=== PATIENT | male | born 1965 | race African-American/Black ===

== ENCOUNTER 2017-09-19 17:17 | Emergency (ER) | payer BC ==
[2017-09-19] MEDS ORDERED: KETOROLAC 30 MG/ML INJ ONE (18:08)
[2017-09-19] MEDS ORDERED: HYDROCODONE/APAP 10/325 TAB ONE (18:53)
--- NOTE | 2017-09-19 19:21 | RAD REPORT ---
EXAM DESCRIPTION: RAD - Shoulder Left 2 View - 09/19/2017 7:12 pm CLINICAL HISTORY: Left shoulder pain FINDINGS: No acute fracture or dislocation is seen. Large amount a calcification is present superior to the humeral head probably indicating calcific ten dinitis. Mild osteoarthritis involves acromioclavicular joint
--- NOTE | 2017-09-19 19:28 | EDPHYS ---
Physician Documentation [facility] Name: Hans Thurston Jr Age: 52 yrs Sex: Male : 1965 Arrival Date: 09/19/2017 Time: 17:20 Bed 27 Private MD: ED Physician Kory Hoskins HPI: 09/19 19:22 This 52 yrs old Black Male presents to ER via Ambulatory with complaints of Arm Problem.gs 19:22 The complaints affect the anterior aspect of left shoulder. Onset: The symptoms/episode gs began/occurred gradually, today. Modifying factors: the symptoms are aggravated by movement. Associated signs and symptoms: Pertinent negatives: numbness, tingling. Severity of symptoms: At their worst the symptoms were severe, in the emergency department the symptoms are unchanged. The patient has not experienced similar symptoms in the past. Historical: - Allergies: 17:34 No Known Allergies; hj - Home Meds: 17:34 None [Active]; hj - PMHx: 17:34 None; hj - PSHx: 17:34 None; hj - Immunization history:: Adult Immunizations up to date. - Social history:: Smoking status: unknown. ROS: 19:22 All other systems are negative. gs Exam: 19:22 Head/Face: Normocephalic, atraumatic. Cardiovascular: Regular rate and rhythm with a gs normal S1 and S2. No gallops, murmurs, or rubs. Normal PMI, no JVD. No pulse deficits. Respiratory: Lungs have equal breath sounds bilaterally, clear to auscultation and percussion. No rales, rhonchi or wheezes noted. No increased work of breathing, no retractions or nasal flaring. Abdomen/GI: Soft, non-tender, with normal bowel sounds. No distension or tympany. No guarding or rebound. No evidence of tenderness throughout. Skin: Warm, dry with normal turgor. Normal color with no rashes, no lesions, and no evidence of cellulitis. Neuro: Awake and alert, GCS 15, oriented to person, place, time, and situation. Cranial nerves II-XII grossly intact. Motor strength 5/5 in all extremities. Sensory grossly intact. Cerebellar exam normal. Normal gait. 19:22 Constitutional: The patient appears alert, awake, uncomfortable. 19:22 Musculoskeletal/extremity: Pulses: are normal with no appreciated deficits, Sensation intact. Joints: the left shoulder displays limited range of motion, painful range of motion, tenderness. Vital Signs: 17:35 BP 121 / 82; Pulse 93; Resp 18; Temp 98.9(TE); Pulse Ox 98% on R/A; Weight 95.25 kg; hj Height 5 ft. 6 in. (167.64 cm); Pain 10/10; 18:55 BP 118 / 84; Pulse 113; Resp 18; Pulse Ox 98% on R/A; tl3 19:46 BP 138 / 90; Pulse 98; Resp 18; Pulse Ox 100% ; tl3 17:35 Body Mass Index 33.89 (95.25 kg, 167.64 cm) hj MDM: 18:01 Patient medically screened. 19:22 Differential diagnosis: dislocation, contusion, tendonitis. Data reviewed: vital signs, nurses notes. Response to treatment: the patient's symptoms have mildly improved after treatment, and as a result, I will discharge patient. 09/19 18:01 Order name: Shoulder Left (2 View) XRAY; Complete Time: 19:22 Administered Medications: 18:11 Drug: TORadol 30 mg Route: IM; Site: left gluteus; tl3 18:53 Follow up: Response: Pain is unchanged, physician notified tl3 18:53 Drug: Bethany 10 mg-325 mg 1 tabs Route: PO; tl3 19:48 Follow up: Response: Pain is decreased tl3 Disposition: 09/19/17 19:27 Discharged to Home. Impression: Calcific tendinitis of left shoulder. - Condition is Stable. - Discharge Instructions: Tendinitis. - Prescriptions for Prednisone 20 mg Oral Tablet - take 1 tablet by ORAL route once daily for 5 days; 5 tablet. Tylenol- Codeine #4 300-60 mg Oral Tablet - take 1 tablet by ORAL route every 6 hours As needed; 12 tablet. - Medication Reconciliation Form, Thank You Letter, Antibiotic Education, Prescription Opioid Use form. - Follow up: Jose Lazcano MD; When: 2 - 3 days; Reason: Re-evaluation by your physician. Signatures: Dispatcher [employer] EDSuraj Blanca RN RN Kory Hoskins MD MD Mellisa Cunningham RN RN tl3 Corrections: (The following items were deleted from the chart) 19:55 19:27 09/19/2017 19:27 Discharged to Home. Impression: Calcific tendinitis of left tl3 shoulder. Condition is Stable. Forms are Medication Reconciliation Form, Thank You Letter, Antibiotic Education, Prescription Opioid Use. Follow up: Jose Lazcano; When: 2 - 3 days; Reason: Re-evaluation by your physician. gs
--- NOTE | 2017-09-19 19:28 | ER ---
Nurse's Notes [facility] Name: Hans Thurston Jr Age: 52 yrs Sex: Male : 1965 Arrival Date: 09/19/2017 Time: 17:20 Bed 27 Private MD: Diagnosis: Calcific tendinitis of left shoulder Presentation: 09/19 17:33 Presenting complaint: Patient states: i cant raise my L arm for 3 days, i might have hj hurt it at some point and now its beginning to swell; tingling and numbness started today;. Transition of care: patient was not received from another setting of care. Onset of symptoms was September 19, 2017. Initial Sepsis Screen: Does the patient meet any 2 criteria? No. Patient's initial sepsis screen is negative. Does the patient have a suspected source of infection? No. Patient's initial sepsis screen is negative. Care prior to arrival: None. 17:33 Method Of Arrival: Ambulatory 17:33 Acuity: PAL 4 hj Triage Assessment: 17:35 General: Appears in no apparent distress. uncomfortable, Behavior is calm, cooperative, hj appropriate for age. Pain: Complains of pain in anterior aspect of left shoulder. Historical: - Allergies: 17:34 No Known Allergies; hj - Home Meds: 17:34 None [Active]; hj - PMHx: 17:34 None; hj - PSHx: 17:34 None; hj - Immunization history:: Adult Immunizations up to date. - Social history:: Smoking status: unknown. Screenin:55 Abuse screen: Denies threats or abuse. Nutritional screening: No deficits noted. tl3 Tuberculosis screening: No symptoms or risk factors identified. Fall Risk None identified. Assessment: 17:15 General: Appears distressed, uncomfortable, well groomed, well developed, well tl3 nourished, Behavior is calm, cooperative, appropriate for age, restless. Pain: Complains of pain in left arm and anterior aspect of left shoulder. Neuro: No deficits noted. Level of Consciousness is awake, alert, obeys commands, Oriented to person, place, time, situation, Appropriate for age. Cardiovascular: Heart tones S1 S2 present Capillary refill < 3 seconds in bilateral fingers Patient's skin is warm and dry. Respiratory: Airway is patent Trachea midline Respiratory effort is even, unlabored, Respiratory pattern is regular, symmetrical, Breath sounds are clear bilaterally. GI: No signs and/or symptoms were reported involving the gastrointestinal system. : No signs and/or symptoms were reported regarding the genitourinary system. EENT: No signs and/or symptoms were reported regarding the EENT system. Derm: No signs and/or symptoms reported regarding the dermatologic system. Musculoskeletal: Reports pain in left arm and anterior aspect of left shoulder Pain is 10 out of 10 on a pain scale. 18:55 Reassessment: No changes from previously documented assessment. Patient and/or family tl3 updated on plan of care and expected duration. Pain level reassessed. Patient is alert, oriented x 3, equal unlabored respirations, skin warm/dry/pink. pt states that no relief was obtained from pain med, Dr Hoskins notified. 19:46 Reassessment: No changes from previously documented assessment. Patient and/or family tl3 updated on plan of care and expected duration. Pain level reassessed. Patient is alert, oriented x 3, equal unlabored respirations, skin warm/dry/pink. pt states that pain is decreased, Dr Hoskins at bedside discussing POC. Vital Signs: 17:35 BP 121 / 82; Pulse 93; Resp 18; Temp 98.9(TE); Pulse Ox 98% on R/A; Weight 95.25 kg; hj Height 5 ft. 6 in. (167.64 cm); Pain 10/10; 18:55 BP 118 / 84; Pulse 113; Resp 18; Pulse Ox 98% on R/A; tl3 19:46 BP 138 / 90; Pulse 98; Resp 18; Pulse Ox 100% ; tl3 17:35 Body Mass Index 33.89 (95.25 kg, 167.64 cm) ED Course: 17:20 Patient arrived in ED. sb2 17:34 Triage completed. hj 17:35 Arm band placed on right wrist. 17:53 Kory Hoskins MD is Attending Physician. 18:05 Mellisa Cunningham, BRYCE is Primary Nurse. tl3 18:55 Pt. is pacing. Awaiting for x-ray. tl3 18:55 Patient has correct armband on for positive identification. Bed in low position. Call tl3 light in reach. Side rails up X 1. 18:55 No provider procedures requiring assistance completed. Patient did not have IV access tl3 during this emergency room visit. 19:07 Shoulder Left (2 View) XRAY In Process Unspecified. EDMS 19:08 X-ray completed. Portable x-ray completed in exam room. Patient tolerated procedure kc2 well. 19:26 Jose Lazcano MD is Referral Physician. Administered Medications: 18:11 Drug: TORadol 30 mg Route: IM; Site: left gluteus; tl3 18:53 Follow up: Response: Pain is unchanged, physician notified tl3 18:53 Drug: [place]ugh 10 mg-325 mg 1 tabs Route: PO; tl3 19:48 Follow up: Response: Pain is decreased tl3 Outcome: 19:27 Discharge ordered by . 19:55 Discharged to home ambulatory. tl3 19:55 Condition: good 19:55 Discharge instructions given to patient, Instructed on discharge instructions, follow up and referral plans. medication usage, Demonstrated understanding of instructions, follow-up care, medications, Prescriptions given X 1. 19:55 Patient left the ED. tl3 Signatures: Dispatcher [employer] EDMS Suraj Arce, BRYCE RN Gianna Fernandez kc2 Kory Hoskins MD MD Celeste Dailey sb2 Mellisa Cunningham RN RN tl3 Corrections: (The following items were deleted from the chart) 17:37 17:35 Pulse 93bpm; Resp 18bpm; Pulse Ox 98% RA; Temp 98.9F Temporal; 95.25 kg; Height 5 hj ft. 6 in.; BMI: 33.8; Pain 10/10; hj 17:38 17:35 Pulse 93bpm; Resp 18bpm; Pulse Ox 98% RA; Temp 98.9F Temporal; 95.25 kg; Height 5 hj ft. 6 in.; BMI: 33.8; Pain 10/10; hj
[2017-09-19 20:22] VITALS: TEMP 98.9
[2017-09-19 20:24] VITALS: BP 138/90; O2SAT 100
== END 2017-09-19 19:55 | disposition home or self-care (01) ==
LOC: ER 17:17
DX: M75.32 Calcific tendinitis of left shoulder (principal)
CPT/HCPCS: 96372; 99283

== ENCOUNTER 2017-12-13 06:38 | Emergency (ER) | payer BC ==
--- NOTE | 2017-12-13 07:57 | EDPHYS ---
Physician Documentation [facility] Name: Hans Thurston Jr Age: 52 yrs Sex: Male : 1965 Arrival Date: 12/13/2017 Time: 06:38 Bed 8 Private MD: ED Physician Wayne Larson HPI: 12/13 06:57 This 52 yrs old Black Male presents to ER via Ambulatory with complaints of Sore Throat.cp 06:57 The patient presents with sore throat. cp 06:57 Onset: The symptoms/episode began/occurred 2 day(s) ago. cp 06:57 Severity of symptoms: in the emergency department the symptoms are unchanged, despite home interventions. Associated signs and symptoms: Pertinent negatives cough, diarrhea, dysphagia, fever, flu-like symptoms, headache, vomiting. Historical: - Allergies: 06:48 No Known Allergies; tl2 - Home Meds: 06:48 None [Active]; tl2 - PMHx: 06:48 None; tl2 - PSHx: 06:48 None; tl2 - Immunization history:: Adult Immunizations up to date. - Social history:: Smoking status: Patient/guardian denies using tobacco. - Ebola Screening: : No symptoms or risks identified at this time. ROS: 07:00 Constitutional: Negative for body aches, chills, fever, poor PO intake. cp 07:00 Eyes: Negative for injury, pain, redness, and discharge. cp 07:00 ENT: Positive for sore throat, Negative for drainage from ear(s), ear pain, rhinorrhea, difficulty swallowing, difficulty handling secretions. 07:00 Cardiovascular: Negative for chest pain, palpitations. 07:00 Respiratory: Negative for cough, shortness of breath, wheezing. 07:00 Abdomen/GI: Negative for abdominal pain, nausea, vomiting, and diarrhea. 07:00 Skin: Negative for cellulitis, rash. 07:00 Neuro: Negative for headache. 07:00 All other systems are negative. Exam: 07:10 Constitutional: The patient appears in no acute distress, alert, awake, non-toxic, well cp developed, well nourished. 07:10 Head/Face: Normocephalic, atraumatic. cp 07:10 Eyes: Periorbital structures: appear normal, Pupils: equal, round, and reactive to light and accomodation, Extraocular movements: intact throughout, Conjunctiva: normal, no exudate, no injection, Sclera: no appreciated abnormality, Lids and lashes: appear normal, bilaterally. 07:10 ENT: External ear(s): are unremarkable, Ear canal(s): are normal, clear, TM's: bulging, is not appreciated, bilaterally, dullness, bilaterally, erythema, is not appreciated, bilaterally, Nose: is normal, Mouth: Lips: moist, Oral mucosa: moist, Posterior pharynx: Airway: no evidence of obstruction, patent, Tonsils: with erythema, no enlargement, no exudate, Uvula: midline, non-edematous, swelling, is not appreciated, erythema, that is mild, exudate, is not appreciated, Voice: is normal. 07:10 Neck: ROM/movement: is normal, is supple, without pain, no range of motions limitations, no meningismus, no nuchal rigidity, Lymph nodes: no appreciated lymphadenopathy. 07:10 Chest/axilla: Inspection: normal, Palpation: is normal, no crepitus, no tenderness. 07:10 Cardiovascular: Rate: normal, Rhythm: regular. 07:10 Respiratory: the patient does not display signs of respiratory distress, Respirations: normal, no use of accessory muscles, no retractions, no splinting, no tachypnea, labored breathing, is not present, Breath sounds: are clear throughout, no decreased breath sounds, no stridor, no wheezing. 07:10 Abdomen/GI: Exam negative for discomfort, distension, guarding, Inspection: abdomen appears normal. 07:10 Skin: cellulitis, is not appreciated, no rash present. Vital Signs: 06:48 BP 144 / 88; Pulse 72; Resp 18; Temp 98.4(O); Pulse Ox 96% on R/A; Weight 97.52 kg; tl2 Height 5 ft. 6 in. (167.64 cm); Pain 6/10; 07:49 BP 142 / 86; Pulse 70; Resp 16; Pulse Ox 100% on R/A; hb 06:48 Body Mass Index 34.70 (97.52 kg, 167.64 cm) tl2 MDM: 06:43 Patient medically screened. cp 07:00 Differential diagnosis: epiglottitis, gingivostomatitis, group A strep tonsillitis, cp barrington's angina, mononucleosis, pharyngitis, retropharyngeal abcess tonsillitis, uvulitis. 07:55 Data reviewed: vital signs, nurses notes, lab test result(s), and as a result, I will discharge patient. 07:55 Counseling: I had a detailed discussion with the patient and/or guardian regarding: the cp historical points, exam findings, and any diagnostic results supporting the discharge/admit diagnosis, lab results, to return to the emergency department if symptoms worsen or persist or if there are any questions or concerns that arise at home. 12/13 06:52 Order name: Strep; Complete Time: 07:56 12/13 07:56 Interpretation: Reviewed. 12/13 07:32 Order name: Throat Culture EDWI Administered Medications: No medications were administered Disposition: 12/14 06:44 Co-signature as Attending Physician, Wayne Larson MD I agree with the assessment and [facility] plan of care. Disposition: 12/13/17 07:56 Discharged to Home. Impression: Acute pharyngitis. - Condition is Stable. - Discharge Instructions: Pharyngitis. - Prescriptions for Ibuprofen 800 mg Oral Tablet - take 1 tablet by ORAL route every 8 hours As needed take with food; 30 tablet. Tessalon Perles 100 mg Oral Capsule - take 1 capsule by ORAL route every 8 hours As needed; 15 capsule. - Medication Reconciliation Form, Thank You Letter, Antibiotic Education, Prescription Opioid Use form. - Follow up: Private Physician; When: 2 - 3 days; Reason: Recheck today's complaints. - Problem is new. - Symptoms are unchanged. Signatures: Dispatcher MedBradford Regional Medical CenterMariluz Toro RN RN sv Anderson, Corey, MD MD cha Page, Corey, PA PA Kelli Javed RN RN tl2 Corrections: (The following items were deleted from the chart) 12/13 09:24 07:56 12/13/2017 07:56 Discharged to Home. Impression: Acute pharyngitis. Condition is sv Stable. Forms are Medication Reconciliation Form, Thank You Letter, Antibiotic Education, Prescription Opioid Use. Follow up: Private Physician; When: 2 - 3 days; Reason: Recheck today's complaints. Problem is new. Symptoms are unchanged. 12/14 08:20 07 07:00 Constitutional: Negative for body aches, chills, fever, poor PO intake, cp cp 12/14 08:20 07 07:00 Eyes: Negative for injury, pain, redness, and discharge, cp cp
--- NOTE | 2017-12-13 07:57 | ER ---
Nurse's Notes [facility] Name: Hans Thurston Jr Age: 52 yrs Sex: Male : 1965 Arrival Date: 12/13/2017 Time: 06:38 Bed 8 Private MD: Diagnosis: Acute pharyngitis Presentation: 12/13 06:47 Presenting complaint: Patient states: I've had a sore and scratchy throat for 2 days. tl2 Denies cough or congestion. Transition of care: patient was not received from another setting of care. Onset of symptoms was December 11, 2017. Risk Assessment: Do you want to hurt yourself or someone else? Patient reports no desire to harm self or others. Initial Sepsis Screen: Does the patient meet any 2 criteria? No. Patient's initial sepsis screen is negative. Does the patient have a suspected source of infection? No. Patient's initial sepsis screen is negative. Care prior to arrival: None. 06:47 Method Of Arrival: Ambulatory tl2 06:47 Acuity: PAL 4 tl2 Triage Assessment: 06:48 General: Appears in no apparent distress. uncomfortable, Behavior is calm, cooperative, tl2 appropriate for age. Pain: Complains of pain in throat Pain currently is 6 out of 10 on a pain scale. EENT: Reports difficulty swallowing Denies nasal congestion, nasal discharge. Historical: - Allergies: 06:48 No Known Allergies; tl2 - Home Meds: 06:48 None [Active]; tl2 - PMHx: 06:48 None; tl2 - PSHx: 06:48 None; tl2 - Immunization history:: Adult Immunizations up to date. - Social history:: Smoking status: Patient/guardian denies using tobacco. - Ebola Screening: : No symptoms or risks identified at this time. Screenin:49 Abuse screen: Denies threats or abuse. Nutritional screening: No deficits noted. tl2 Tuberculosis screening: No symptoms or risk factors identified. Fall Risk None identified. Assessment: 07:10 General: Appears in no apparent distress. comfortable, well groomed, well developed, sg well nourished, Behavior is calm, cooperative, appropriate for age. Pain: Denies pain. Neuro: Level of Consciousness is awake, alert, obeys commands, Oriented to person, place, time, [employer] are equal bilaterally Moves all extremities. Full function Gait is steady, Speech is normal, Facial symmetry appears normal, Pupils are PERRLA. Cardiovascular: Heart tones S1 S2 present. Respiratory: Airway is patent Respiratory effort is even, unlabored, Breath sounds are clear. GI: No signs and/or symptoms were reported involving the gastrointestinal system. : No signs and/or symptoms were reported regarding the genitourinary system. EENT: Throat is reddened has enlarged tonsils on left Reports pain when swallowing. Derm: Skin is intact, is healthy with good turgor, Skin is dry, Skin is normal, Skin temperature is warm. Musculoskeletal: No signs and/or symptoms reported regarding the musculoskeletal system. 07:49 Reassessment: Patient appears in no apparent distress at this time. No changes from hb previously documented assessment. Patient and/or family updated on plan of care and expected duration. Pain level reassessed. Patient is alert, oriented x 3, equal unlabored respirations, skin warm/dry/pink. Vital Signs: 06:48 BP 144 / 88; Pulse 72; Resp 18; Temp 98.4(O); Pulse Ox 96% on R/A; Weight 97.52 kg; tl2 Height 5 ft. 6 in. (167.64 cm); Pain 6/10; 07:49 BP 142 / 86; Pulse 70; Resp 16; Pulse Ox 100% on R/A; hb 06:48 Body Mass Index 34.70 (97.52 kg, 167.64 cm) tl2 ED Course: 06:38 Patient arrived in ED. ds1 06:43 José Garcia, BRYCE is Primary Nurse. bp 06:43 Wayne Hendricks PA is PHCP. cp 06:43 Wayne Larson MD is Attending Physician. cp 06:48 Triage completed. tl2 06:48 Arm band placed on right wrist. tl2 07:09 Primary Nurse role handed off by José Garcia, BRYCE sg 07:09 Alex Arevalo, BRYCE is Primary Nurse. sg 07:10 No provider procedures requiring assistance completed. Strep swab sent to lab. sg 09:24 Patient has correct armband on for positive identification. sv 09:24 Patient did not have IV access during this emergency room visit. sv Administered Medications: No medications were administered Outcome: 07:56 Discharge ordered by . cp 09:24 Discharged to home ambulatory. sv 09:24 Condition: stable 09:24 Discharge instructions given to patient, Instructed on discharge instructions, follow up and referral plans. medication usage, Demonstrated understanding of instructions, follow-up care, medications, Prescriptions given X 2. 09:24 Patient left the ED. sv Signatures: Mariluz Gonzales, RN RN Alex Gamboa RN RN Beatriz Grajeda ds1 Wayne Hendricks PA PA cp Baxter, Heather, RN RN Kelli Rey RN RN tl2 José Garcia RN RN bp
[2017-12-13 09:32] VITALS: TEMP 98.4
[2017-12-13 09:33] VITALS: BP 142/86; O2SAT 100
== END 2017-12-13 09:24 | disposition home or self-care (01) ==
LOC: ER 06:38
DX: J02.9 Acute pharyngitis, unspecified (principal)
CPT/HCPCS: 87070; 87081; 99283

== ENCOUNTER 2020-12-14 03:22 | Emergency (ER) | payer BC, OTHER ==
--- OUTSIDE RECORDS SUMMARY | 2020-12-14 03:25 | XMS REPORT | Continuity of Care Document ---
:1965 Author Organization [facility] t Address [facility] [place] [address] Care Team Providers Name Role Phone Irene Bain Attending Clinician [phone] MD [place] BAIN Attending Clinician Unavailable ODELL Admitting Clinician Unavailable MD [place] BAIN Admitting Clinician Unavailable Problems Condition Condition Condition Status Onset Resolution Last Treating Co mments Source Name Details Category Date Date Treatment Clinician Date History History Problem Active [place] and 09-04 da physical Physical 00:00: Medica l examinatio Examinatio 00 Gr oup n, n, pre-employ Pre-employ ment ment Allergies, Adverse Reactions, Alerts This patient has no known allergies or adverse reactions. Social History Smoking Status Start Date Stop Date Source Never Smoker [facility] Medications This patient has no known medications. Vital Signs Vital Name Observation Time Observation Value Comments Source BP Diastolic 2018-09-04 00:00:00 86 mm[Hg] [facility] Height 2018-09-04 00:00:00 66 [in_i] [facility] BMI (Body Mass 2018-09-04 00:00:00 35.6 kg/m2 [facility] BP Systolic 2018-09-04 00:00:00 136 mm[Hg] [facility] Body Weight 2018-09-04 00:00:00 3528 [oz_av] [facility] Procedures This patient has no known procedures. Encounters Start End Encounter Admission Attending Care Care Encounter Source Date/Time Date/Time Type Type Clinicians Facility Department ID 2020-11-13 2020-11-13 Outpatient Odell Uyen [facility] [id number] 00:00:00 00:00:00 Fani Bonilla [id number] 2020-09-25 2020-09-26 Outpatient ODELL, [facility] [id number] [place] 00:00:00 00:00:00 FANI [address] 2020-09-25 2020-09-25 Outpatient Odell, [facility] [id number] 00:00:00 00:00:00 Fani Bonilla [id number] 2020-09-21 2020-09-21 Outpatient ODELL, [facility] [id number] [place] 00:00:00 00:00:00 FANI [address] 2020-09-21 2020-09-21 Outpatient ODELL, [facility] [id number] [place] 00:00:00 00:00:00 FANI [address] 2020-09-07 2020-09-07 Outpatient ODELL, [facility] [id number] [place] 00:00:00 00:00:00 FANI [address] 2020-08-31 2020-08-31 Outpatient Odell, [facility] [id number] 00:00:00 00:00:00 Fani Bonilla [id number] 2020-08-12 2020-08-12 Outpatient Odell, [facility] [id number] 00:00:00 00:00:00 Fani Irene [id number] 2018-09-04 2018-09-04 Narayan Live [facility] [place] - [id number] Coral starkey 00:00:00 00:00:00 MD Noel: [facility] [address] [facility] [address], [facility] [place] [address] , Ph. Results Test Description Test Time Test Comments Results Result Comments Source SARS-CoV-2 (COVID-19) RNA [Presence] in Respiratory sp ecimen by 2020-09-21 18:18:42 CHERYL with probe detection Test Item Value Reference Range Interpretation Comme nts SARS-CoV-2 (COVID-19) RNA [Presence] in Respiratory Not detected No t-Detected specimen by CHERYL with probe detection (test code = 80254-9) Whether patient is employed in a healthcare setting (test code = 76459-9) Whether the patient has symptoms related to condition of interest (test code = 52325-3) Patient was hospitalized because of this condition (test code = 36952-2) Whether the patient was admitted to intensive care unit (ICU) for condition of interest (test code = 11500-8) Whether patient resides in a congregate care setting (test code = 59972-4)
--- NOTE | 2020-12-14 07:01 | ER ---
Nurse's Notes [facility] Name: Hans Thurston Jr Age: 55 yrs Sex: Male : 1965 Arrival Date: 12/14/2020 Time: 03:26 Bed DIS4 Private MD: Diagnosis: Acute tonsillitis Presentation: 12/14 03:48 Chief complaint: Patient states: he has had a sore throat since Monday no fever the bb pain is getting worse. Coronavirus screen: At this time, the client does not indicate any symptoms associated with coronavirus-19. Ebola Screen: No symptoms or risks identified at this time. Initial Sepsis Screen: Does the patient meet any 2 criteria? No. Patient's initial sepsis screen is negative. Does the patient have a suspected source of infection? No. Patient's initial sepsis screen is negative. Risk Assessment: Do you want to hurt yourself or someone else? Patient reports no desire to harm self or others. Onset of symptoms was December 11, 2020. 03:48 Method Of Arrival: Ambulatory bb 03:48 Acuity: PAL 5 bb Triage Assessment: 03:49 General: Appears in no apparent distress. Behavior is calm, cooperative. Pain: bb Complains of pain in throat Pain currently is 9 out of 10 on a pain scale. EENT: Reports difficulty swallowing. Neuro: Level of Consciousness is awake, alert, obeys commands, Oriented to person, place, time, situation. Cardiovascular: Capillary refill < 3 seconds Patient's skin is warm and dry. Respiratory: Respiratory effort is even, unlabored, Respiratory pattern is regular. GI: No signs and/or symptoms were reported involving the gastrointestinal system. Derm: Skin is dry, Skin is normal, Skin temperature is warm. Musculoskeletal: Circulation, motion, and sensation intact. Historical: - Allergies: 03:49 No Known Allergies; bb - Home Meds: 03:49 None [Active]; bb - PMHx: 03:49 Prostate Cancer; bb - PSHx: 03:49 prostate removal; bb - Immunization history:: Adult Immunizations up to date, Client reports receiving the 1st dose of the Covid vaccine. - Social history:: Smoking status: Patient denies any tobacco usage or history of. Screenin:45 Abuse screen: Denies threats or abuse. Nutritional screening: No deficits noted. bb Tuberculosis screening: No symptoms or risk factors identified. Fall Risk None identified. Assessment: 04:45 Reassessment: No changes from previously documented assessment. Patient is alert, bb oriented x 3, equal unlabored respirations, skin warm/dry/pink. see triage assessment. 07:01 Reassessment: RECD REPORT FROM KEL WU. 55YO BM P/W SORE THROAT. IV ABX PENDING. bp Vital Signs: 03:48 BP 134 / 84; Pulse 85; Resp 16 S; Temp 99.7(O); Pulse Ox 97% on R/A; Weight 99.79 kg bb (R); Height 5 ft. 6 in. (167.64 cm) (R); Pain 9/10; 03:48 Body Mass Index 35.51 (99.79 kg, 167.64 cm) bb ED Course: 03:26 Patient arrived in ED. 03:49 Triage completed. bb 03:49 Arm band placed on Patient placed in waiting room, Patient notified of wait time. Labs bb ordered per protocol. 03:54 Strep swab sent to lab. bb 04:35 Johana Conner, RN is Primary Nurse. bb 04:45 Patient has correct armband on for positive identification. bb 05:40 Jadon Guillen MD is Attending Physician. pkl 06:16 CT Soft Tissue Neck W/contr In Process Unspecified. EDMS 07:00 Primary Nurse role handed off by Johana Conner RN bp 07:00 José Garcia, RN is Primary Nurse. bp Administered Medications: 07:00 Drug: Clindamycin 900 mg Route: IVPB; Infused Over: 30 mins; Site: right antecubital; bp Outcome: 07:01 Discharge ordered by . pkl 07:46 Patient left the ED. iw Signatures: Dispatcher [employer] EDMS Jadon Guillen MD MD pkJohana Christensen RN RN Munira Chamorro RN RN José Garcia RN RN bp Marsh, Wendy wm Corrections: (The following items were deleted from the chart) 03:50 03:49 PMHx: None; bb harsh
--- NOTE | 2020-12-14 07:02 | EDPHYS ---
Physician Documentation [facility] Name: Hans Thurston Jr Age: 55 yrs Sex: Male : 1965 Arrival Date: 12/14/2020 Time: 03:26 Bed DIS4 Private MD: ED Physician Jadon Guillen HPI: 12/14 05:52 This 55 yrs old Black Male presents to ER via Ambulatory with complaints of Sore Throat.pkl 05:52 The patient presents with sore throat. The patient describes throat pain as constant. pkl Onset: The symptoms/episode began/occurred 3 day(s) ago. Associated signs and symptoms: Pertinent positives: difficulty swallowing. Historical: - Allergies: 03:49 No Known Allergies; bb - Home Meds: 03:49 None [Active]; bb - PMHx: 03:49 Prostate Cancer; bb - PSHx: 03:49 prostate removal; bb - Immunization history:: Adult Immunizations up to date, Client reports receiving the 1st dose of the Covid vaccine. - Social history:: Smoking status: Patient denies any tobacco usage or history of. ROS: 06:30 Eyes: Negative for injury, pain, redness, and discharge. pkl 06:30 ENT: Positive for sore throat, difficulty swallowing. 06:30 Neck: Negative for stiffness. 06:30 Cardiovascular: Negative for chest pain, palpitations. 06:30 Respiratory: Negative for cough, shortness of breath. 06:30 Abdomen/GI: Negative for abdominal pain, nausea, vomiting, and diarrhea. 06:30 Back: Negative for acute changes. 06:30 : Negative for urinary symptoms. 06:30 MS/extremity: Negative for acute changes. 06:30 Skin: Negative for rash. 06:30 Neuro: Negative for altered mental status, loss of consciousness. Exam: 06:30 Head/Face: Normocephalic, atraumatic. Eyes: Pupils equal round and reactive to light, pkl extra-ocular motions intact. Lids and lashes normal. Conjunctiva and sclera are non-icteric and not injected. Cornea within normal limits. Periorbital areas with no swelling, redness, or edema. 06:30 ENT: Posterior pharynx: Uvula: edematous, erythema. 06:30 Neck: Exam negative for nuchal rigidity. 06:30 Chest/axilla: Exam negative for acute changes. 06:30 Cardiovascular: Rate: normal, Rhythm: regular. 06:30 Respiratory: the patient does not display signs of respiratory distress, Respirations: normal, Breath sounds: are clear throughout. 06:30 Abdomen/GI: Bowel sounds: normal, Palpation: abdomen is soft and non-tender, in all quadrants. 06:30 Back: Exam negative for acute changes. 06:30 : Exam negative for acute changes. 06:30 Musculoskeletal/extremity: Exam is negative for acute changes. 06:30 Skin: Exam negative for rash. 06:30 Neuro: Orientation: is normal, Mentation: is normal, Cranial nerves: grossly normal, Motor: is normal. Vital Signs: 03:48 BP 134 / 84; Pulse 85; Resp 16 S; Temp 99.7(O); Pulse Ox 97% on R/A; Weight 99.79 kg bb (R); Height 5 ft. 6 in. (167.64 cm) (R); Pain 9/10; 03:48 Body Mass Index 35.51 (99.79 kg, 167.64 cm) bb MDM: 05:40 Patient medically screened. pkl 06:57 Data reviewed: vital signs, nurses notes, lab test result(s), radiologic studies, CT pkl scan. ED course: Discussed lab and CT Scan result with patient Advised follow up with PCP in 2 to 3 days. patient understood instructions. 12/14 03:51 Order name: Strep; Complete Time: 05:42 bb 12/14 05:41 Order name: Throat Culture EDMS 12/14 05:50 Order name: CT Soft Tissue Neck W/contr pkl 12/14 06:51 Order name: CREATININE WHOLE BLOOD; Complete Time: 06:56 EDIL 12/14 05:50 Order name: Saline Lock; Complete Time: 05:58 pkl Administered Medications: 07:00 Drug: Clindamycin 900 mg Route: IVPB; Infused Over: 30 mins; Site: right antecubital; bp Disposition Summary: 12/14/20 07:01 Discharge Ordered Location: Home pkl Problem: new pkl Symptoms: have improved pkl Condition: Stable pkl Diagnosis - Acute tonsillitis pkl Followup: pkl - With: Private Physician - When: 2 - 3 days - Reason: Re-evaluation by your physician Discharge Instructions: - Discharge Summary Sheet pkl Forms: - Medication Reconciliation Form pkl - Thank You Letter pkl - Antibiotic Education pkl - Prescription Opioid Use pkl Prescriptions: - Clindamycin HCl 300 mg Oral Capsule - take 1 capsule by ORAL route every 6 hours for 7 days; 28 capsule; Refills: 0, pkl Product Selection Permitted Signatures: Dispatcher [employer] EDIL Jadon Guillen MD MD pkl Johana Conner RN RN José Thorne RN RN bp Corrections: (The following items were deleted from the chart) 03:50 03:49 PMHx: None; harsh house 05:51 05:51 CREATININE, SERUM+C.LAB.BRZ ordered. [facility] EDIL 06:32 05:52 Eyes: Negative for injury, pain, redness, and discharge, pkl pkl
[2020-12-14] MEDS ORDERED: CLINDAMYCIN 900MG/D5W 900 MG/50 ML IVPB IV ONE (07:25)
[2020-12-14 07:51] VITALS: BP 134/84; TEMP 99.7; O2SAT 97
--- NOTE | 2020-12-14 10:43 | RAD REPORT ---
EXAM DESCRIPTION: CT - Soft Tissue Neck W/Contr - 12/14/2020 9:18 am CLINICAL HISTORY: The patient is 55 years old and is Male; sore throat, difficulty swallowing TECHNIQUE: Axial computed tomography images of the neck with intravenous contrast. Sagittal and co mary jane reformatted images were created and reviewed. This CT exam was performed using one or more of the following dose reduction techniques: automated exposure control, adjustment of the mA and/or k V according to patient size, and/or use of iterative reconstruction technique. COMPARISON: No relevant prior studies available. FINDINGS: OROPHARYNX: Mild prominence of the palatine tonsils is noted. No peritonsillar abscess . HYPOPHARYNX: Unremarkable. LARYNX: Unremarkable. Normal epiglottis. TRACHEA: Unremarkable. RETROPHARYNGEAL SPACE: Unremarkable. SUBMANDIBULAR/PAROTID GLANDS: Unremarkable. Glands are normal in size. THYROID: Unremarkable. No enlarged or calcified nodules. BONES/JOINTS: There is multi-level intervertebral disc height loss. There are disc-osteophyte com plexes at several levels, with associated mild spinal canal narrowing. There is also facet hypertroph y and uncovertebral joint osteophytosis, with associated multilevel neural foraminal narrowing. SOFT TISSUES: The soft tissues are normal. VASCULATURE: Unremarkable. Normal in course and caliber. LYMPH NODES: Unremarkable. No enlarged lymph nodes. LUNG APICES: The lung apices are clear. IMPRESSION: Findings suggestive of mild bilateral tonsillitis. No evidence of peritonsillar abscess. Electronically signed by: Denae Gastelum MD 12/14/2020 6:34 AM CDT Due to temporary technical issues with the PACS/Fluency reporting system, reports are being signed by the in house radiologists without review as a courtesy to insure prompt reporting. The interpreting radiologist is fully responsible for the content of the report.
== END 2020-12-14 07:46 | disposition home or self-care (01) ==
LOC: ER 03:22
DX: J03.90 Acute tonsillitis, unspecified (principal)
CPT/HCPCS: 87070; 82565; 87081; 70491; Q9967

== ENCOUNTER 2021-05-23 16:13 | Emergency (ER) | payer OTHER ==
--- OUTSIDE RECORDS SUMMARY | 2021-05-23 16:16 | XMS REPORT | Continuity of Care Document ---
:1965 Author Organization [facility] t Address [address] [place] [address] Care Team Providers Name Role Phone Leny Attending Clinician Unavailable Irene Bain Attending Clinician [phone] MD [place] BAIN Attending Clinician Unavailable Kiko Attending Clinician Unavailable Leny Admitting Clinician Unavailable ODELL Admitting Clinician Unavailable MD [place] BAIN Admitting Clinician Unavailable Kiko Admitting Clinician Unavailable Payers Payer Name Policy Type Policy Number Effective Date Expiration Date [facility] [id number] 2018 00:00:00 SAMIRA BRIDGE \T\ [id number] Problems Condition Condition Condition Status Onset Resolution [...] Start Date Stop Date Source Never Smoker [facility] Medications This patient has no known medications. Vital Signs Vital Name Observation Time Observation Value Comments Source BP Diastolic 2018-09-04 00:00:00 86 mm[Hg] [facility] Height 2018-09-04 00:00:00 66 [in_i] [facility] BMI (Body Mass 2018-09-04 00:00:00 35.6 kg/m2 [facility] BP Systolic 2018-09-04 00:00:00 136 mm[Hg] [facility] Body Weight 2018-09-04 00:00:00 3528 [oz_av] [facility] Procedures This patient has no known procedures. Encounters Start End Encounter Admission Attending Care Care Encounter Source Date/Time Date/Time Type Type Clinicians Facility Department ID 2021-05-20 2021-05-20 Outpatient Goldfarb_D [facility] [id number] [place] 10:58:00 10:58:00 [facility] 2021-05-20 2021-05-20 Outpatient Odell, [facility] HMU [id number] 00:00:00 00:00:00 Fani Lightf [id number] 2021-02-16 Outpatient Goldfarb_D HMU [facility]U [id number] [place] 11:31:00 11:31:00 [id number] [facility] 2021-02-16 2021-02-16 Outpatient Odell, [facility] HMU [id number] 00:00:00 00:00:00 Fani Irene [id number] 2020-11-13 2020-11-13 Outpatient Goldfarb_D [facility]U [id number] [place] 12:45:00 12:45:00 [id number] [facility] 2020-11-13 2020-11-13 Outpatient Odell, [facility]U [id number] 00:00:00 00:00:00 Fani Lightf [id number] 2020-11-10 2020-11-10 Outpatient Goldfarb_D HM[facility]U [id number] [place] 11:45:00 11:45:00 [id number] [facility] 2020-10-02 2020-10-02 Outpatient Goldfarb_D HMU [facility]U [id number] [place] 09:07:00 09:07:00 [id number] [facility] 2020-09-30 2020-09-30 Outpatient Goldfarb_D [facility]U [id number] [place] 04:48:00 04:48:00 [id number] [facility] 2020-09-28 2020-09-28 Outpatient Goldfarb_D [facility]U [facility]U [id number] [place] 06:53:00 06:53:00 [id number] [facility] 2020-09-25 2020-09-26 Outpatient ODELL, [facility] [id number] [place] 00:00:00 00:00:00 FANI [address] [facility] 2020-09-25 2020-09-25 Outpatient Odell, [facility] HMU [id number] 00:00:00 00:00:00 Fani Bonilla [id number] 2020-09-21 2020-09-21 Outpatient Goldfarb_D [facility] [id number] [place] 11:20:00 11:20:00 [id number] [facility] 2020-09-21 2020-09-21 Outpatient ODELL, [facility] [id number] [place] 00:00:00 00:00:00 FANI [address] 2020-09-21 2020-09-21 Outpatient ODELL, [facility] [id number] [place] 00:00:00 00:00:00 FANI [address] [facility] 2020-09-07 2020-09-07 Outpatient ODELL, [facility] [id number] [place] 00:00:00 00:00:00 FANI [address] 2020-08-31 2020-08-31 Outpatient Goldfarb_D [facility] [id number] [place] 06:25:00 06:25:00 [id number] [facility] 2020-08-31 2020-08-31 Outpatient Odell, [facility] HMU [id number] 00:00:00 00:00:00 Fani Bonilla [id number] 2020-08-26 2020-08-26 Outpatient Goldfarb_D [facility] [id number] [place] 02:29:00 02:29:00 [id number] [facility] 2020-08-12 2020-08-12 Outpatient Goldfarb_D [facility]U [id number] [place] 03:22:00 03:22:00 [id number] [facility] 2020-08-12 2020-08-12 Outpatient Odell, [facility] [id number] 00:00:00 00:00:00 Fani Bonilla [id number] 2020-08-07 2020-08-07 Outpatient Goldfarb_D U [facility] [id number] [place] 03:56:00 03:56:00 [id number] [facility] 2020-04-01 2020-04-01 Outpatient [facility] [id number] [place] 02:48:00 02:48:00 [id number] 2018-09-04 2018-09-04 Narayan Live [facility] [place] - [id number] [place] 00:00:00 00:00:00 MD Noel: [address] [facility] [place] - [address], [place] [address] , Ph. Results Test Description Test Time Test Comments Results Result Comments Source SARS-CoV-2 (COVID-19) RNA [Presence] in Respiratory sp ecimen by 2020-09-21 18:18:42 CHERYL with probe detection Test Item Value Reference Range Interpretation Comme nts SARS-CoV-2 (COVID-19) RNA [Presence] in Respiratory Not detected No t-Detected specimen by CHERYL with probe detection (test code = 53210-4) Whether patient is employed in a healthcare setting (test code = 65790-2) Whether the patient has symptoms related to condition of interest (test code = 15398-8) Patient was hospitalized because of this condition (test code = 82883-9) Whether the patient was admitted to intensive care unit (ICU) for condition of interest (test code = 69148-1) Whether patient resides in a congregate care setting (test code = 33621-7)
--- NOTE | 2021-05-23 18:04 | RAD REPORT ---
EXAM DESCRIPTION: RAD - Shoulder Right 2 View - 05/23/2021 5:53 pm CLINICAL HISTORY: Right shoulder pain FINDINGS: No fracture or dislocation is seen. Moderate osteoarthritis AC joint mainly consisting of osteophytes. Right humeral head is high riding which may indicate a chronic rotator cuff tear
--- NOTE | 2021-05-23 18:17 | ER ---
Nurse's Notes [facility] Name: Hans Thurston Jr Age: 56 yrs Sex: Male : 1965 Arrival Date: 05/23/2021 Time: 16:14 Bed 12 Private MD: Diagnosis: Pain in right shoulder Presentation: 05/23 16:51 Chief complaint: Patient states: Right shoulder pain that started after laying on the ww couch. He states he is unable to move his shoulder that started on Monday. Denies any recent injury or trauma. Coronavirus screen: Vaccine status: Patient reports receiving the 2nd dose of the covid vaccine. Client denies travel out of the [place] in the last 14 days. Ebola Screen: Patient negative for fever greater than or equal to 101.5 degrees Fahrenheit, and additional compatible Ebola Virus Disease symptoms Patient denies exposure to infectious person. Initial Sepsis Screen: Does the patient meet any 2 criteria? No. Patient's initial sepsis screen is negative. Does the patient have a suspected source of infection? No. Patient's initial sepsis screen is negative. Risk Assessment: Do you want to hurt yourself or someone else? Patient reports no desire to harm self or others. Onset of symptoms is unknown. 16:51 Method Of Arrival: Ambulatory ww 16:51 Acuity: PAL 4 ww Triage Assessment: 16:52 General: Appears in no apparent distress. Behavior is calm, cooperative, appropriate ww for age. Pain: Complains of pain in anterior aspect of right shoulder and right axilla. EENT: No deficits noted. No signs and/or symptoms were reported regarding the EENT system. Neuro: No deficits noted. Level of Consciousness is awake, alert, obeys commands, Oriented to person, place, time, situation. Cardiovascular: No deficits noted. Denies chest pain, shortness of breath. Respiratory: No deficits noted. Airway is patent Respiratory effort is even, unlabored, Respiratory pattern is regular, symmetrical. GI: No deficits noted. No signs and/or symptoms were reported involving the gastrointestinal system. : No deficits noted. No signs and/or symptoms were reported regarding the genitourinary system. Derm: No deficits noted. No signs and/or symptoms reported regarding the dermatologic system. Musculoskeletal: Reports pain in anterior aspect of right shoulder, right axilla and right bicep. Historical: - Allergies: 16:52 No Known Allergies; ww - Home Meds: 16:52 None [Active]; ww - PMHx: 16:52 Prostate Cancer; ww - PSHx: 16:52 prostate removal; right knee menicus; ww - Immunization history:: Client reports receiving the 2nd dose of the Covid vaccine, Flu vaccine is not up to date. - Social history:: Smoking status: Patient denies any tobacco usage or history of. Patient/guardian denies using alcohol, street drugs, The patient lives with family. - Family history:: not pertinent. Screenin:55 Abuse screen: Denies threats or abuse. Denies injuries from another. Nutritional ww screening: No deficits noted. Tuberculosis screening: No symptoms or risk factors identified. Fall Risk None identified. Assessment: 18:38 Reassessment: Patient appears in no apparent distress at this time. General: Appears in ss no apparent distress. comfortable, Behavior is calm, cooperative. Neuro: Level of Consciousness is awake, alert, obeys commands. Cardiovascular: Capillary refill < 3 seconds is brisk in bilateral fingers. Respiratory: Airway is patent Respiratory effort is even, unlabored, Respiratory pattern is regular, symmetrical. EENT: Oral mucosa is moist. Derm: Skin is pink, warm \T\ dry. Musculoskeletal: Circulation, motion, and sensation intact. Range of motion: intact in all extremities, Swelling absent. Vital Signs: 16:51 BP 131 / 81; Pulse 81; Resp 18; Temp 98.3; Pulse Ox 98% on R/A; Weight 99.79 kg; Height ww 5 ft. 6 in. (167.64 cm); Pain 5/10; 16:51 Body Mass Index 35.51 (99.79 kg, 167.64 cm) ww ED Course: 16:14 Patient arrived in ED. am2 16:52 Triage completed. ww 16:52 Arm band placed on left wrist. ww 17:52 Damaris Grijalva MD is Attending Physician. ma2 17:53 Shoulder Right (2 View) XRAY In Process Unspecified. EDMS 18:38 Patient has correct armband on for positive identification. Bed in low position. Call ss light in reach. 18:38 No provider procedures requiring assistance completed. Patient did not have IV access ss during this emergency room visit. Administered Medications: No medications were administered Outcome: 18:17 Discharge ordered by . jarod 18:38 Discharged to home ambulatory. 18:38 Condition: good 18:38 Discharge instructions given to patient, Instructed on discharge instructions, follow up and referral plans. medication usage, Demonstrated understanding of instructions, follow-up care, Prescriptions given X 3. 18:42 Patient left the ED. Signatures: Dispatcher [employer] EDMS Tiffany Garcia RN RN Alissa Morris Mohammad, MD MD ma2 Wood, Whitney RN RN
--- NOTE | 2021-05-23 18:17 | EDPHYS ---
Physician Documentation [facility] Name: Hans Thurston Jr Age: 56 yrs Sex: Male : 1965 Arrival Date: 05/23/2021 Time: 16:14 Bed 12 Private MD: ED Physician Damaris Grijalva HPI: 05/23 18:15 This 56 yrs old Black Male presents to ER via Ambulatory with complaints of Shoulder ma2 Injury - right. 18:15 The patient or guardian complains of decreased range of motion. Onset: The ma2 symptoms/episode began/occurred gradually, 3 day(s) ago. Associated signs and symptoms: Pertinent negatives: diaphoresis, dyspnea. Severity of symptoms: At their worst the symptoms were mild, in the emergency department the symptoms are unchanged. The patient has not experienced similar symptoms in the past. Has history of right rotator cuff injury in the past, was working hard yesterday, at work, and started to have right shoulder pain to the anterior part, it is worse when he abduct the shoulder, or rotated.. Historical: - Allergies: 16:52 No Known Allergies; ww - Home Meds: 16:52 None [Active]; ww - PMHx: 16:52 Prostate Cancer; ww - PSHx: 16:52 prostate removal; right knee menicus; ww - Immunization history:: Client reports receiving the 2nd dose of the Covid vaccine, Flu vaccine is not up to date. - Social history:: Smoking status: Patient denies any tobacco usage or history of. Patient/guardian denies using alcohol, street drugs, The patient lives with family. - Family history:: not pertinent. ROS: 18:15 Constitutional: Negative for fever, chills, and weight loss. ma2 18:15 All other systems are negative. Exam: 18:15 Constitutional: This is a well developed, well nourished patient who is awake, alert, ma2 and in no acute distress. Head/Face: Normocephalic, atraumatic. Eyes: Pupils equal round and reactive to light, extra-ocular motions intact. Lids and lashes normal. Conjunctiva and sclera are non-icteric and not injected. Cornea within normal limits. Periorbital areas with no swelling, redness, or edema. ENT: Nares patent. No nasal discharge, no septal abnormalities noted. Tympanic membranes are normal and external auditory canals are clear. Oropharynx with no redness, swelling, or masses, exudates, or evidence of obstruction, uvula midline. Mucous membranes moist. Neck: Trachea midline, no thyromegaly or masses palpated, and no cervical lymphadenopathy. Supple, full range of motion without nuchal rigidity, or vertebral point tenderness. No Meningismus. Chest/axilla: Normal chest wall appearance and motion. Nontender with no deformity. No lesions are appreciated. Cardiovascular: Regular rate and rhythm with a normal S1 and S2. No gallops, murmurs, or rubs. Normal PMI, no JVD. No pulse deficits. Respiratory: Lungs have equal breath sounds bilaterally, clear to auscultation and percussion. No rales, rhonchi or wheezes noted. No increased work of breathing, no retractions or nasal flaring. Abdomen/GI: Soft, non-tender, with normal bowel sounds. No distension or tympany. No guarding or rebound. No evidence of tenderness throughout. Back: No spinal tenderness. No costovertebral tenderness. Full range of motion. Skin: Warm, dry with normal turgor. Normal color with no rashes, no lesions, and no evidence of cellulitis. MS/ Extremity: Right shoulder limited range of motion due to pain, skin exam is unremarkable, no sign of septic shoulder, no warmth or effusion. Otherwise pulses equal, no cyanosis. Neurovascular intact. Full, normal range of motion. Neuro: Awake and alert, GCS 15, oriented to person, place, time, and situation. Cranial nerves II-XII grossly intact. Motor strength 5/5 in all extremities. Sensory grossly intact. Cerebellar exam normal. Normal gait. Vital Signs: 16:51 BP 131 / 81; Pulse 81; Resp 18; Temp 98.3; Pulse Ox 98% on R/A; Weight 99.79 kg; Height ww 5 ft. 6 in. (167.64 cm); Pain 5/10; 16:51 Body Mass Index 35.51 (99.79 kg, 167.64 cm) ww MDM: 17:52 Patient medically screened. ma2 18:15 Differential diagnosis: Anterior dislocation with fracture, Anterior dislocation ma2 without fracture, Posterior dislocation with fracture, Posterior dislocation without fracture, humeral head fracture, glenoid fracture, DJD, tendonitis. Data reviewed: vital signs, nurses notes. Counseling: I had a detailed discussion with the patient and/or guardian regarding: the historical points, exam findings, and any diagnostic results supporting the discharge/admit diagnosis, the presence of at least one elevated blood pressure reading (>120/80) during this emergency department visit, radiology results, the need for outpatient follow up. Response to treatment: the patient's symptoms have markedly improved after treatment. 05/23 16:56 Order name: Shoulder Right (2 View) XRAY; Complete Time: 18:08 ww Administered Medications: No medications were administered Disposition Summary: 05/23/21 18:17 Discharge Ordered Location: Home ma2 Condition: Stable ma2 Diagnosis - Pain in right shoulder ma2 Followup: ma2 - With: Private Physician - When: Tomorrow - Reason: Continuance of care Discharge Instructions: - Discharge Summary Sheet ma2 - Joint Pain ma2 Forms: - Medication Reconciliation Form ma2 - Thank You Letter ma2 - Antibiotic Education ma2 - Prescription Opioid Use ma2 Prescriptions: - Cyclobenzaprine 10 mg Oral Tablet - take 1 tablet by ORAL route every 8 hours As needed; 30 tablet; Refills: 0, ma2 Product Selection Permitted - Diclofenac Sodium 75 mg Oral Tablet Sustained Release - take 1 tablet by ORAL route 2 times per day; 30 tablet; Refills: 0, Product ma2 Selection Permitted - Medrol ([place]) 4 mg Oral Tablets, Dose Pack - take 1 tablet by ORAL route as directed - follow package instructions; 1 ma2 packet; Refills: 0, Product Selection Permitted Signatures: Dispatcher [employer] EDMS Damaris Grijalva MD MD ma2 Aleida Dia RN RN ww
[2021-05-23 18:47] VITALS: BP 131/81; TEMP 98.3; O2SAT 98
== END 2021-05-23 18:42 | disposition home or self-care (01) ==
LOC: ER 16:13
DX: M25.511 Pain in right shoulder (principal)
CPT/HCPCS: 99283

== ENCOUNTER 2022-07-31 02:45 | Emergency (ER) | payer SELFPAY ==
--- OUTSIDE RECORDS SUMMARY | 2022-07-31 02:49 | XMS REPORT | Continuity of Care Document ---
:1965 Author Organization [facility] t Address [address] [place] [id number] Care Team Providers Name Role Phone PCP, PATIENT DOES NOT HAVE A Primary Care Physician Unavaila al Szymanski_Alicia Attending Clinician Unavailable Kiko Attending Clinician Unavailable Leny Attending Clinician Unavailable Fani Bain Attending Clinician [phone] Rama Mathias RN Attending Clinician Unavailable DEBBIE MONDRAGON Attending Clinician Unavailable Only, Ang Db Test Attending Clinician Unavailable Debbie Pinto Attending Clinician Doctor Unassigned, [place] Attending Clinician Unavailable MD FANI BAIN Attending Clinician Unavailable Suly Admitting Clinician Unavailable Kiko Admitting Clinician Unavailable Leny Admitting Clinician Unavailable FANI BAIN Admitting Clinician Unavailable MD FANI BAIN Admitting Clinician Unavailable Payers Payer Name Policy Type Policy Number Effective Date Expiration Date [facility] [id number] [facility] \\ [id number] [facility] [id number] 2018 00:00:00 Problems Condition Condition Condition Status Onset Resolution Last Treating Co mments Source Name Details Category Date Date Treatment Clinician Date Malignant Malignant Disease Active [facility] neoplasm [facility] prostate prostate 00 l History History Problem Active [place] and 4-23 [facility] physical Physical 00:00: Medica l examinatio Examinatio 00 Gr oup n, n, pre-employ Pre-employ ment ment Screening Screening Problem Active [facility] for for 2-03 [facility] malignant Malignant 00:00: Urol ogy neoplasm Neoplasm 00 of of prostate Prostate Urinary Urinary Problem Active [place] tract Tract 7-11 [facility] infectious Infectious 00:00: Ur ology disease Disease 00 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 (event) [place] Alcohol intake 2020-09-28 2020-09-28 [facility] 00:00:00 00:00:00 non-drinker (finding) Tobacco use and 2020-09-07 2020-09-07 Smokeless tobacco [facility] exposure 00:00:00 00:00:00 non-user Sex Assigned At [address] [facility] 00:00:00 00:00:00 Smoking Status Start Date Stop Date Source Unknown if ever smoked [facility] Never smoked tobacco [facility]ital Medications Ordered Filled Start Stop Current Ordering Indication Dosage Frequency Signature Comments Components Source Medication Medication Date Date Medication? Clinician (SIG) Name Name tadalafil Yes 30mg Take 30 mg [facility] (CIALIS 5-[address] ORAL) 17:21: as needed. Hospit a 40 l acetaminoph acetaminoph No acetaminop Black en 300 en 300 hen 300 [facility] mg-codeine mg-codeine mg-codeine Urology 30 mg 30 mg 30 mg tablet TAKE tablet TAKE tablet 1 TABLET BY 1 TABLET BY TAKE 1 MOUTH EVERY MOUTH EVERY TABLET BY 6 HOURS 6 HOURS MOUTH NEEDED FOR NEEDED FOR EVERY 6 PAIN FOR UP PAIN FOR UP HOURS TO 14 DAYS TO 14 DAYS NEEDED FOR PAIN FOR UP TO 14 DAYS ciprofloxac ciprofloxac No ciprofloxa Black in 500 mg in 500 mg matthew 500 mg [facility] tablet tablet tablet Urology PLEASE SEE PLEASE SEE PLEASE SEE ATTACHED ATTACHED ATTACHED FOR FOR FOR DETAILED DETAILED DETAILED DIRECTIONS DIRECTIONS DIRECTIONS clindamycin clindamycin No clindamyci Black HCl 300 mg HCl 300 mg n HCl 300 [facility] capsule capsule mg capsule Uro logy TAKE ONE TAKE ONE TAKE ONE CAPSULE BY CAPSULE BY CAPSULE BY MOUTH EVERY MOUTH EVERY MOUTH 6 HOURS 6 HOURS EVERY 6 UNTIL ALL UNTIL ALL HOURS TAKEN TAKEN UNTIL ALL TAKEN COMPOUNDED COMPOUNDED No COMPOUNDED Black MEDICATION MEDICATION MEDICATION [facility] TADALAFIL TADALAFIL TADALAFIL Urology (SR) 30 MG (SR) 30 MG (SR) 30 MG CAPSULE CAPSULE CAPSULE Take one Take one Take one capsule by capsule by capsule by mouth as mouth as mouth as needed needed needed docusate docusate No docusate [place] sodium 100 sodium 100 sodium 100 [facility] mg capsule mg capsule mg capsule Urology TAKE 1 TAKE 1 TAKE 1 CAPSULE BY CAPSULE BY CAPSULE BY MOUTH TWICE MOUTH TWICE MOUTH A DAY A DAY TWICE A DAY naproxen naproxen No naproxen [place] 500 mg 500 mg 500 mg [facility] tablet TAKE tablet TAKE tablet Urology 1 TABLET BY 1 TABLET BY TAKE 1 MOUTH TWICE MOUTH TWICE TABLET BY DAILY DAILY MOUTH TWICE DAILY Prescriptio Prescriptio No Prescripti Black n - Renewal n - Renewal on - M etro Renewal Urology Tri Mix 5 Tri Mix 5 No Tri Mix 5 Black mL vial. mL vial. mL vial. Met ro Papaverine Papaverine Papaverine Urology 30mg/mL, 30mg/mL, 30mg/mL, Phentolamin Phentolamin Phentolami e Mesylate e Mesylate ne 1mg/mL, 1mg/mL, Mesylate Prostagland Prostagland 1mg/mL, in E1 in E1 Prostaglan 10mcg/mL 10mcg/mL din E1 start @ start @ 10mcg/mL 0.1cc and 0.1cc and start @ can titrate can titrate 0.1cc and up up can titrate up Tri Mix DS Tri Mix DS No Tri Mix DS Black 5 ml vial, 5 ml vial, 5 ml vial, [facility] Papaverine Papaverine Papaverine Urology 30mg/mL, 30mg/mL, 30mg/mL, Phentolamin Phentolamin Phentolami e Mesylate e Mesylate ne 2mg/mL, 2mg/mL, Mesylate Prostagland Prostagland 2mg/mL, in E1 in E1 Prostaglan 20mcg/mL 20mcg/mL din E1 start @ start @ 20mcg/mL 0.1cc & can 0.1cc & can start @ titrate up titrate up 0.1cc & can titrate up acetaminoph acetaminoph No acetaminop Black en 300 en 300 hen 300 [facility] mg-codeine mg-codeine mg-codeine Urology 30 mg 30 mg 30 mg tablet TAKE tablet TAKE tablet 1 TABLET BY 1 TABLET BY TAKE 1 MOUTH EVERY MOUTH EVERY TABLET BY 6 HOURS 6 HOURS MOUTH NEEDED FOR NEEDED FOR EVERY 6 PAIN FOR UP PAIN FOR UP HOURS TO 14 DAYS TO 14 DAYS NEEDED FOR PAIN FOR UP TO 14 DAYS COMPOUNDED COMPOUNDED No COMPOUNDED Black MEDICATION MEDICATION MEDICATION [facility] TADALAFIL TADALAFIL TADALAFIL Urology (SR) 30 MG (SR) 30 MG (SR) 30 MG CAPSULE CAPSULE CAPSULE Take one Take one Take one capsule by capsule by capsule by mouth as mouth as mouth as needed needed needed docusate docusate No docusate [place] sodium 100 sodium 100 sodium 100 [facility] mg capsule mg capsule mg capsule Urology TAKE 1 TAKE 1 TAKE 1 CAPSULE BY CAPSULE BY CAPSULE BY MOUTH TWICE MOUTH TWICE MOUTH A DAY A DAY TWICE A DAY naproxen naproxen No naproxen [place] 500 mg 500 mg 500 mg [facility] tablet TAKE tablet TAKE tablet Urology 1 TABLET BY 1 TABLET BY TAKE 1 MOUTH TWICE MOUTH TWICE TABLET BY DAILY DAILY MOUTH TWICE DAILY Prescriptio Prescriptio No Prescripti Black n - Renewal n - Renewal on - M etro Renewal Urology Tri Mix DS Tri Mix DS No Tri Mix DS Black 5 ml vial, 5 ml vial, 5 ml vial, [facility] Papaverine Papaverine Papaverine Urology 30mg/mL, 30mg/mL, 30mg/mL, Phentolamin Phentolamin Phentolami e Mesylate e Mesylate ne 2mg/mL, 2mg/mL, Mesylate Prostagland Prostagland 2mg/mL, in E1 in E1 Prostaglan 20mcg/mL 20mcg/mL din E1 start @ start @ 20mcg/mL 0.1cc & can 0.1cc & can start @ titrate up titrate up 0.1cc & can titrate up acetaminoph acetaminoph No acetaminop Black en 300 en 300 hen 300 [facility] mg-codeine mg-codeine mg-codeine Urology 30 mg 30 mg 30 mg tablet TAKE tablet TAKE tablet 1 TABLET BY 1 TABLET BY TAKE 1 MOUTH EVERY MOUTH EVERY TABLET BY 6 HOURS 6 HOURS MOUTH NEEDED FOR NEEDED FOR EVERY 6 PAIN FOR UP PAIN FOR UP HOURS TO 14 DAYS TO 14 DAYS NEEDED FOR PAIN FOR UP TO 14 DAYS COMPOUNDED COMPOUNDED No COMPOUNDED Black MEDICATION MEDICATION MEDICATION [facility] TADALAFIL TADALAFIL TADALAFIL Urology (SR) 30 MG (SR) 30 MG (SR) 30 MG CAPSULE CAPSULE CAPSULE Take one Take one Take one capsule by capsule by capsule by mouth as mouth as mouth as needed needed needed cyclobenzap cyclobenzap No cyclobenza Black rine 10 mg rine 10 mg jaswinder 10 [facility] tablet TAKE tablet TAKE mg tablet Urology 1 TABLET BY 1 TABLET BY TAKE 1 MOUTH THREE MOUTH THREE TABLET BY TIMES DAILY TIMES DAILY MOUTH NEEDED NEEDED THREE MUSCLE MUSCLE TIMES SPASMS SPASMS DAILY NEEDED MUSCLE SPASMS diclofenac diclofenac No diclofenac Black sodium 75 sodium 75 sodium 75 [facility] mg mg mg Urology tablet,shant tablet,shant tablet,del yed release yed release ayed TAKE 1 TAKE 1 release TABLET BY TABLET BY TAKE 1 MOUTH 2 MOUTH 2 TABLET BY TIMES PER TIMES PER MOUTH 2 DAY DAY TIMES PER DAY docusate docusate No docusate [place] sodium 100 sodium 100 sodium 100 [facility] mg capsule mg capsule mg capsule Urology TAKE 1 TAKE 1 TAKE 1 CAPSULE BY CAPSULE BY CAPSULE BY MOUTH TWICE MOUTH TWICE MOUTH A DAY A DAY TWICE A DAY etodolac etodolac No etodolac [place] ston 500 mg 500 mg 500 mg [facility] tablet TAKE tablet TAKE tablet Urology 1 TABLET BY 1 TABLET BY TAKE 1 MOUTH TWICE MOUTH TWICE TABLET BY DAILY DAILY MOUTH TWICE DAILY hydrocodone hydrocodone No hydrocodon Black 5 5 e 5 [facility] mg-acetamin mg-acetamin mg-acetami Urology ophen 325 ophen 325 nophen 325 mg tablet mg tablet mg tablet TAKE 1 TAKE 1 TAKE 1 TABLET BY TABLET BY TABLET BY MOUTH EVERY MOUTH EVERY MOUTH 4 HOURS 4 HOURS EVERY 4 NEEDED NEEDED HOURS NEEDED methylpredn methylpredn No methylpred Black isolone 4 isolone 4 nisolone 4 [facility] mg tablets mg tablets mg tablets Urology in a dose in a dose in a dose pack TAKE 6 pack TAKE 6 pack TAKE TABLETS ON TABLETS ON 6 TABLETS DAY 1 DAY 1 ON DAY 1 DIRECTED ON DIRECTED ON PACKAGE AND PACKAGE AND DIRECTED DECREASE BY DECREASE BY ON PACKAGE 1 TAB EACH 1 TAB EACH AND DAY FOR A DAY FOR A DECREASE TOTAL OF 6 TOTAL OF 6 BY 1 TAB DAYS DAYS EACH DAY FOR A TOTAL OF 6 DAYS nabumetone nabumetone No nabumetone Black 750 mg 750 mg 750 mg [facility] tablet TAKE tablet TAKE tablet Urology 1 TABLET BY 1 TABLET BY TAKE 1 MOUTH TWICE MOUTH TWICE TABLET BY DAILY DAILY MOUTH TWICE DAILY naproxen naproxen No naproxen [place] 500 mg 500 mg 500 mg [facility] tablet TAKE tablet TAKE tablet Urology 1 TABLET BY 1 TABLET BY TAKE 1 MOUTH TWICE MOUTH TWICE TABLET BY DAILY DAILY MOUTH TWICE DAILY Prescriptio Prescriptio No Prescripti Black n - Renewal n - Renewal on - M etro Renewal Urology Quad Mix Quad Mix No Quad Mix Tish ston 5ML 5ML 5ML [facility] Vial.Papave Vial.Papave Vial.Papav Urology rine rine erine 30mg/mL, 30mg/mL, 30mg/mL, Phentolamin Phentolamin Phentolami e 2mg/mL, e 2mg/mL, ne 2mg/mL, Prostagland Prostagland Prostaglan in E1 in E1 din E1 20mcg/mL, 20mcg/mL, 20mcg/mL, Atropine Atropine Atropine Sulfate Sulfate Sulfate 200mcg/mL 200mcg/mL 200mcg/mL start @ start @ start @ 0.1cc & can 0.1cc & can 0.1cc & titrate up titrate up can titrate up Tri Mix DS Tri Mix DS No Tri Mix DS Black 5 ml vial, 5 ml vial, 5 ml vial, [facility] Papaverine Papaverine Papaverine Urology 30mg/mL, 30mg/mL, 30mg/mL, Phentolamin Phentolamin Phentolami e Mesylate e Mesylate ne 2mg/mL, 2mg/mL, Mesylate Prostagland Prostagland 2mg/mL, in E1 in E1 Prostaglan 20mcg/mL 20mcg/mL din E1 start @ start @ 20mcg/mL 0.1cc & can 0.1cc & can start @ titrate up titrate up 0.1cc & can titrate up acetaminoph acetaminoph No acetaminop Black en 300 en 300 hen 300 [facility] mg-codeine mg-codeine mg-codeine Urology 30 mg 30 mg 30 mg tablet TAKE tablet TAKE tablet 1 TABLET BY 1 TABLET BY TAKE 1 MOUTH EVERY MOUTH EVERY TABLET BY 6 HOURS 6 HOURS MOUTH NEEDED FOR NEEDED FOR EVERY 6 PAIN FOR UP PAIN FOR UP HOURS TO 14 DAYS TO 14 DAYS NEEDED FOR PAIN FOR UP TO 14 DAYS Cialis 10 Cialis 10 No 1 Q1D Cialis 10 Trevizo mg tablet mg tablet mg tablet [facility] Take 1 Take 1 Take 1 Urology tablet tablet tablet every day every day every day by oral by oral by oral route. route. route. Cialis 20 Cialis 20 No 1 Q1D Cialis 20 Trevizo mg tablet mg tablet mg tablet [facility] Take 1 Take 1 Take 1 Urology tablet tablet tablet every day every day every day by oral by oral by oral route. route. route. compounded compounded No compounded Black medication medication medication [facility] TADALAFIL TADALAFIL TADALAFIL Urology (SR) 30 MG (SR) 30 MG (SR) 30 MG CAPSULE CAPSULE CAPSULE Take one Take one Take one capsule by capsule by capsule by mouth as mouth as mouth as needed needed needed cyclobenzap cyclobenzap No cyclobenza Black rine 10 mg rine 10 mg jaswinder 10 [facility] tablet TAKE tablet TAKE mg tablet Urology 1 TABLET BY 1 TABLET BY TAKE 1 MOUTH THREE MOUTH THREE TABLET BY TIMES DAILY TIMES DAILY MOUTH NEEDED NEEDED THREE MUSCLE MUSCLE TIMES SPASMS SPASMS DAILY NEEDED MUSCLE SPASMS diclofenac diclofenac No diclofenac Black sodium 75 sodium 75 sodium 75 [facility] mg mg mg Urology tablet,shant tablet,shant tablet,del yed release yed release ayed TAKE 1 TAKE 1 release TABLET BY TABLET BY TAKE 1 MOUTH 2 MOUTH 2 TABLET BY TIMES PER TIMES PER MOUTH 2 DAY DAY TIMES PER DAY docusate docusate No docusate [place] ston sodium 100 sodium 100 sodium 100 [facility] mg capsule mg capsule mg capsule Urology TAKE 1 TAKE 1 TAKE 1 CAPSULE BY CAPSULE BY CAPSULE BY MOUTH TWICE MOUTH TWICE MOUTH A DAY A DAY TWICE A DAY etodolac etodolac No etodolac [place] ston 500 mg 500 mg 500 mg [facility] tablet TAKE tablet TAKE tablet Urology 1 TABLET BY 1 TABLET BY TAKE 1 MOUTH TWICE MOUTH TWICE TABLET BY DAILY DAILY MOUTH TWICE DAILY hydrocodone hydrocodone No hydrocodon Black 5 5 e 5 [facility] mg-acetamin mg-acetamin mg-acetami Urology ophen 325 ophen 325 nophen 325 mg tablet mg tablet mg tablet TAKE 1 TAKE 1 TAKE 1 TABLET BY TABLET BY TABLET BY MOUTH EVERY MOUTH EVERY MOUTH 4 HOURS 4 HOURS EVERY 4 NEEDED NEEDED HOURS NEEDED methylpredn methylpredn No methylpred Black isolone 4 isolone 4 nisolone 4 [facility] mg tablets mg tablets mg tablets Urology in a dose in a dose in a dose pack TAKE 6 pack TAKE 6 pack TAKE TABLETS ON TABLETS ON 6 TABLETS DAY 1 DAY 1 ON DAY 1 DIRECTED ON DIRECTED ON PACKAGE AND PACKAGE AND DIRECTED DECREASE BY DECREASE BY ON PACKAGE 1 TAB EACH 1 TAB EACH AND DAY FOR A DAY FOR A DECREASE TOTAL OF 6 TOTAL OF 6 BY 1 TAB DAYS DAYS EACH DAY FOR A TOTAL OF 6 DAYS nabumetone nabumetone No nabumetone Black 750 mg 750 mg 750 mg [facility] tablet TAKE tablet TAKE tablet Urology 1 TABLET BY 1 TABLET BY TAKE 1 MOUTH TWICE MOUTH TWICE TABLET BY DAILY DAILY MOUTH TWICE DAILY naproxen naproxen No naproxen [place] 500 mg 500 mg 500 mg [facility] tablet TAKE tablet TAKE tablet Urology 1 TABLET BY 1 TABLET BY TAKE 1 MOUTH TWICE MOUTH TWICE TABLET BY DAILY DAILY MOUTH TWICE DAILY Prescriptio Prescriptio No Prescripti Black n - Renewal n - Renewal on - M etro Renewal Urology Quad Mix Quad Mix No Quad Mix Tish ston 5ML 5ML 5ML [facility] Vial.Papave Vial.Papave Vial.Papav Urology rine rine erine 30mg/mL, 30mg/mL, 30mg/mL, Phentolamin Phentolamin Phentolami e 2mg/mL, e 2mg/mL, ne 2mg/mL, Prostagland Prostagland Prostaglan in E1 in E1 din E1 20mcg/mL, 20mcg/mL, 20mcg/mL, Atropine Atropine Atropine Sulfate Sulfate Sulfate 200mcg/mL 200mcg/mL 200mcg/mL start @ start @ start @ 0.1cc & can 0.1cc & can 0.1cc & titrate up titrate up can titrate up Tri Mix DS Tri Mix DS No Tri Mix DS Black 5 ml vial, 5 ml vial, 5 ml vial, [facility] Papaverine Papaverine Papaverine Urology 30mg/mL, 30mg/mL, 30mg/mL, Phentolamin Phentolamin Phentolami e Mesylate e Mesylate ne 2mg/mL, 2mg/mL, Mesylate Prostagland Prostagland 2mg/mL, in E1 in E1 Prostaglan 20mcg/mL 20mcg/mL din E1 start @ start @ 20mcg/mL 0.1cc & can 0.1cc & can start @ titrate up titrate up 0.1cc & can titrate up acetaminoph acetaminoph No acetaminop Black en 300 en 300 hen 300 [facility] mg-codeine mg-codeine mg-codeine Urology 30 mg 30 mg 30 mg tablet TAKE tablet TAKE tablet 1 TABLET BY 1 TABLET BY TAKE 1 MOUTH EVERY MOUTH EVERY TABLET BY 6 HOURS 6 HOURS MOUTH NEEDED FOR NEEDED FOR EVERY 6 PAIN FOR UP PAIN FOR UP HOURS TO 14 DAYS TO 14 DAYS NEEDED FOR PAIN FOR UP TO 14 DAYS compounded compounded No compounded Black medication medication medication [facility] TADALAFIL TADALAFIL TADALAFIL Urology (SR) 30 MG (SR) 30 MG (SR) 30 MG CAPSULE CAPSULE CAPSULE Take one Take one Take one capsule by capsule by capsule by mouth as mouth as mouth as needed needed needed cyclobenzap cyclobenzap No cyclobenza Black rine 10 mg rine 10 mg jaswinder 10 [facility] tablet TAKE tablet TAKE mg tablet Urology 1 TABLET BY 1 TABLET BY TAKE 1 MOUTH THREE MOUTH THREE TABLET BY TIMES DAILY TIMES DAILY MOUTH NEEDED NEEDED THREE MUSCLE MUSCLE TIMES SPASMS SPASMS DAILY NEEDED MUSCLE SPASMS diclofenac diclofenac No diclofenac Black sodium 75 sodium 75 sodium 75 [facility] mg mg mg Urology tablet,shant tablet,shant tablet,del yed release yed release ayed TAKE 1 TAKE 1 release TABLET BY TABLET BY TAKE 1 MOUTH 2 MOUTH 2 TABLET BY TIMES PER TIMES PER MOUTH 2 DAY DAY TIMES PER DAY docusate docusate No docusate Tish ston sodium 100 sodium 100 sodium 100 [facility] mg capsule mg capsule mg capsule Urology TAKE 1 TAKE 1 TAKE 1 CAPSULE BY CAPSULE BY CAPSULE BY MOUTH TWICE MOUTH TWICE MOUTH A DAY A DAY TWICE A DAY etodolac etodolac No etodolac [place] ston 500 mg 500 mg 500 mg [facility] tablet TAKE tablet TAKE tablet Urology 1 TABLET BY 1 TABLET BY TAKE 1 MOUTH TWICE MOUTH TWICE TABLET BY DAILY DAILY MOUTH TWICE DAILY hydrocodone hydrocodone No hydrocodon Black 5 5 e 5 [facility] mg-acetamin mg-acetamin mg-acetami Urology ophen 325 ophen 325 nophen 325 mg tablet mg tablet mg tablet TAKE 1 TAKE 1 TAKE 1 TABLET BY TABLET BY TABLET BY MOUTH EVERY MOUTH EVERY MOUTH 4 HOURS 4 HOURS EVERY 4 NEEDED NEEDED HOURS NEEDED methylpredn methylpredn No methylpred Black isolone 4 isolone 4 nisolone 4 [facility] mg tablets mg tablets mg tablets Urology in a dose in a dose in a dose pack TAKE 6 pack TAKE 6 pack TAKE TABLETS ON TABLETS ON 6 TABLETS DAY 1 DAY 1 ON DAY 1 DIRECTED ON DIRECTED ON PACKAGE AND PACKAGE AND DIRECTED DECREASE BY DECREASE BY ON PACKAGE 1 TAB EACH 1 TAB EACH AND DAY FOR A DAY FOR A DECREASE TOTAL OF 6 TOTAL OF 6 BY 1 TAB DAYS DAYS EACH DAY FOR A TOTAL OF 6 DAYS nabumetone nabumetone No nabumetone Black 750 mg 750 mg 750 mg [facility] tablet TAKE tablet TAKE tablet Urology 1 TABLET BY 1 TABLET BY TAKE 1 MOUTH TWICE MOUTH TWICE TABLET BY DAILY DAILY MOUTH TWICE DAILY naproxen naproxen No naproxen T[place] ston 500 mg 500 mg 500 mg [facility] tablet TAKE tablet TAKE tablet Urology 1 TABLET BY 1 TABLET BY TAKE 1 MOUTH TWICE MOUTH TWICE TABLET BY DAILY DAILY MOUTH TWICE DAILY Prescriptio Prescriptio No Prescripti Black n - Renewal n - Renewal on - M etro Renewal Urology Quad Mix Quad Mix No Quad Mix Tish ston 5ML 5ML 5ML [facility] Vial.Papave Vial.Papave Vial.Papav Urology rine rine erine 30mg/mL, 30mg/mL, 30mg/mL, Phentolamin Phentolamin Phentolami e 2mg/mL, e 2mg/mL, ne 2mg/mL, Prostagland Prostagland Prostaglan in E1 in E1 din E1 20mcg/mL, 20mcg/mL, 20mcg/mL, Atropine Atropine Atropine Sulfate Sulfate Sulfate 200mcg/mL 200mcg/mL 200mcg/mL start @ start @ start @ 0.1cc & can 0.1cc & can 0.1cc & titrate up titrate up can titrate up tadalafil tadalafil No tadalafil Black 10 mg 10 mg 10 mg [facility] tablet TAKE tablet TAKE tablet Urology ONE (1) ONE (1) TAKE ONE TABLET(S) TABLET(S) (1) BY MOUTH BY MOUTH TABLET(S) ONCE A DAY. ONCE A DAY. BY MOUTH ONCE A DAY. tadalafil tadalafil No tadalafil Black 20 mg 20 mg 20 mg [facility] tablet TAKE tablet TAKE tablet Urology ONE (1) ONE (1) TAKE ONE TABLET(S) TABLET(S) (1) BY MOUTH BY MOUTH TABLET(S) ONCE A DAY. ONCE A DAY. BY MOUTH ONCE A DAY. Tri Mix DS Tri Mix DS No Tri Mix DS Black 5 ml vial, 5 ml vial, 5 ml vial, [facility] Papaverine Papaverine Papaverine Urology 30mg/mL, 30mg/mL, 30mg/mL, Phentolamin Phentolamin Phentolami e Mesylate e Mesylate ne 2mg/mL, 2mg/mL, Mesylate Prostagland Prostagland 2mg/mL, in E1 in E1 Prostaglan 20mcg/mL 20mcg/mL din E1 start @ start @ 20mcg/mL 0.1cc & can 0.1cc & can start @ titrate up titrate up 0.1cc & can titrate up ciprofloxac ciprofloxac No ciprofloxa Trevizo in 500 mg in 500 mg matthew 500 mg [facility] tablet TAKE tablet TAKE tablet Urology 1 TABLET BY 1 TABLET BY TAKE 1 MOUTH EVERY MOUTH EVERY TABLET BY 12 HOURS 12 HOURS MOUTH EVERY 12 HOURS naproxen naproxen No naproxen Tish ston 500 mg 500 mg 500 mg [facility] tablet TAKE tablet TAKE tablet Urology 1 TABLET BY 1 TABLET BY TAKE 1 MOUTH TWICE MOUTH TWICE TABLET BY DAILY DAILY MOUTH TWICE DAILY Prescriptio Prescriptio No Prescripti Black n - Renewal n - Renewal on - M etro Renewal Urology sulfamethox sulfamethox No sulfametho Black azole 800 azole 800 xazole 800 [facility] mg-trimetho mg-trimetho mg-trimeth Urology prim 160 mg prim 160 mg oprim 160 tablet TAKE tablet TAKE mg tablet 1 TABLET BY 1 TABLET BY TAKE 1 MOUTH EVERY MOUTH EVERY TABLET BY 12 HOURS 12 HOURS MOUTH FOR 3 DAYS FOR 3 DAYS EVERY 12 HOURS FOR 3 DAYS ciprofloxac ciprofloxac No ciprofloxa Black in 500 mg in 500 mg matthew 500 mg [facility] tablet TAKE tablet TAKE tablet Urology 1 TABLET BY 1 TABLET BY TAKE 1 MOUTH EVERY MOUTH EVERY TABLET BY 12 HOURS 12 HOURS MOUTH EVERY 12 HOURS COMPOUNDED COMPOUNDED No COMPOUNDED Black MEDICATION MEDICATION MEDICATION [facility] TADALAFIL TADALAFIL TADALAFIL Urology (SR) 30 MG (SR) 30 MG (SR) 30 MG CAPSULE CAPSULE CAPSULE Take one Take one Take one capsule by capsule by capsule by mouth as mouth as mouth as needed needed needed naproxen naproxen No naproxen Tish ston 500 mg 500 mg 500 mg [facility] tablet TAKE tablet TAKE tablet Urology 1 TABLET BY 1 TABLET BY TAKE 1 MOUTH TWICE MOUTH TWICE TABLET BY DAILY DAILY MOUTH TWICE DAILY Prescriptio Prescriptio No Prescripti Black n - Renewal n - Renewal on - etro Renewal Urology sulfamethox sulfamethox No sulfametho Black azole 800 azole 800 xazole 800 [facility] mg-trimetho mg-trimetho mg-trimeth Urology prim 160 mg prim 160 mg oprim 160 tablet TAKE tablet TAKE mg tablet 1 TABLET BY 1 TABLET BY TAKE 1 MOUTH EVERY MOUTH EVERY TABLET BY 12 HOURS 12 HOURS MOUTH FOR 3 DAYS FOR 3 DAYS EVERY 12 HOURS FOR 3 DAYS COMPOUNDED COMPOUNDED No COMPOUNDED Black MEDICATION MEDICATION MEDICATION [facility] TADALAFIL TADALAFIL TADALAFIL Urology (SR) 30 MG (SR) 30 MG (SR) 30 MG CAPSULE CAPSULE CAPSULE Take one Take one Take one capsule by capsule by capsule by mouth as mouth as mouth as needed needed needed naproxen naproxen No naproxen Tish ston 500 mg 500 mg 500 mg [facility] tablet TAKE tablet TAKE tablet Urology 1 TABLET BY 1 TABLET BY TAKE 1 MOUTH TWICE MOUTH TWICE TABLET BY DAILY DAILY MOUTH TWICE DAILY Prescriptio Prescriptio No [facility] n - Renewal n - Renewal on - etro Renewal Urology acetaminoph acetaminoph No acetaminop Black en 300 en 300 hen 300 [facility] mg-codeine mg-codeine mg-codeine Urology 30 mg 30 mg 30 mg tablet TAKE tablet TAKE tablet 1 TABLET BY 1 TABLET BY TAKE 1 MOUTH EVERY MOUTH EVERY TABLET BY 6 HOURS 6 HOURS MOUTH NEEDED FOR NEEDED FOR EVERY 6 PAIN FOR UP PAIN FOR UP HOURS TO 14 DAYS TO 14 DAYS NEEDED FOR PAIN FOR UP TO 14 DAYS ciprofloxac ciprofloxac No ciprofpaulaxa Black in 500 mg in 500 mg matthew 500 mg [facility] tablet tablet tablet Urology PLEASE SEE PLEASE SEE PLEASE SEE ATTACHED ATTACHED ATTACHED FOR FOR FOR DETAILED DETAILED DETAILED DIRECTIONS DIRECTIONS DIRECTIONS COMPOUNDED COMPOUNDED No COMPOUNDED Black MEDICATION MEDICATION MEDICATION [facility] TADALAFIL TADALAFIL TADALAFIL Urology (SR) 30 MG (SR) 30 MG (SR) 30 MG CAPSULE CAPSULE CAPSULE Take one Take one Take one capsule by capsule by capsule by mouth as mouth as mouth as needed needed needed docusate docusate No docusate Tish ston sodium 100 sodium 100 sodium 100 [facility] mg capsule mg capsule mg capsule Urology TAKE 1 TAKE 1 TAKE 1 CAPSULE BY CAPSULE BY CAPSULE BY MOUTH TWICE MOUTH TWICE MOUTH A DAY A DAY TWICE A DAY naproxen naproxen No naproxen Tish ston 500 mg 500 mg 500 mg [facility] tablet TAKE tablet TAKE tablet Urology 1 TABLET BY 1 TABLET BY TAKE 1 MOUTH TWICE MOUTH TWICE TABLET BY DAILY DAILY MOUTH TWICE DAILY Prescriptio Prescriptio No Prescripti Black n - Renewal n - Renewal on - M etro Renewal Urology tadalafil tadalafil No tadalafil [place] 10 mg 10 mg 10 mg da tablet TAKE tablet TAKE tablet Medical ONE (1) ONE (1) TAKE ONE Group TABLET(S) TABLET(S) (1) BY MOUTH BY MOUTH TABLET(S) ONCE A DAY. ONCE A DAY. BY MOUTH ONCE A DAY. Vital Signs Vital Name Observation Time Observation Value Comments Source BP Diastolic 2022-07-29 00:00:00 82 mm[Hg] [facility] Height 2022-07-29 00:00:00 66 [in_i] [facility] BMI (Body Mass 2022-07-29 00:00:00 36.5 kg/m2 [facility]) Group BP Systolic 2022-07-29 00:00:00 119 mm[Hg] [facility] Body Weight 2022-07-29 00:00:00 3616 [oz_av] [facility] Height 2022-07-06 00:00:00 66 [in_i] [facility] BMI (Body Mass 2022-07-06 00:00:00 34.7 kg/m2 [place] [facility] Body Weight 2022-07-06 00:00:00 215 [lb_av] [facility] Height 2022-02-24 00:00:00 66 [in_i] [facility] BMI (Body Mass 2022-02-24 00:00:00 34.7 kg/m2 [place] [facility] Body Weight 2022-02-24 00:00:00 215 [lb_av] [facility] BP Diastolic 2021-08-25 00:00:00 93 mm[Hg] [facility] Height 2021-08-25 00:00:00 66 [in_i] [facility] BMI (Body Mass 2021-08-25 00:00:00 34.7 kg/m2 [place] [facility] BP Systolic 2021-08-25 00:00:00 140 mm[Hg] [facility] Body Weight 2021-08-25 00:00:00 215 [lb_av] [facility] BP Diastolic 2021-05-20 00:00:00 93 mm[Hg] [facility] Height 2021-05-20 00:00:00 66 [in_i] [facility] BMI (Body Mass 2021-05-20 00:00:00 34.7 kg/m2 [place] [facility] BP Systolic 2021-05-20 00:00:00 140 mm[Hg] [facility] Body Weight 2021-05-20 00:00:00 215 [lb_av] [facility] BP Diastolic 2021-02-16 00:00:00 93 mm[Hg] [facility] Height 2021-02-16 00:00:00 66 [in_i] [facility] BMI (Body Mass 2021-02-16 00:00:00 34.7 kg/m2 [place] [facility] BP Systolic 2021-02-16 00:00:00 140 mm[Hg] [facility] Body Weight 2021-02-16 00:00:00 215 [lb_av] [facility] BP Systolic 2020-11-13 00:00:00 140 mm[Hg] [facility] Body Weight 2020-11-13 00:00:00 215 [lb_av] [facility] BP Diastolic 2020-11-13 00:00:00 93 mm[Hg] [facility] Height 2020-11-13 00:00:00 66 [in_i] [facility] BMI (Body Mass 2020-11-13 00:00:00 34.7 kg/m2 [place] [facility] BP Diastolic 2020-08-31 00:00:00 93 mm[Hg] [facility] Height 2020-08-31 00:00:00 66 [in_i] [facility] BMI (Body Mass 2020-08-31 00:00:00 34.7 kg/m2 [place] [facility] BP Systolic 2020-08-31 00:00:00 140 mm[Hg] [facility] Body Weight 2020-08-31 00:00:00 215 [lb_av] [facility] BP Diastolic 2018-09-04 00:00:00 86 mm[Hg] [facility] Height 2018-09-04 00:00:00 66 [in_i] [facility] BMI (Body Mass 2018-09-04 00:00:00 35.6 kg/m2 [facility]) Group BP Systolic 2018-09-04 00:00:00 136 mm[Hg] [facility] Body Weight 2018-09-04 00:00:00 3528 [oz_av] [facility] Procedures Procedure Date / Time Performing Clinician Source Performed ASSIGNMENT OF BENEFITS 2021-06-10 15:36:32 Doctor Unassigned, No [facility] Prostatectomy, 2020-09-25 00:00:00 Santhosh plascencia Laparoscopic, Rob[facility] Urology (Surg) MRI, prostate, w/wo 2020-09-01 00:00:00 Santhosh Palencia contrast Urology Prostatectomy (Turp) 2020-05-15 00:00:00 [facility] Diagnostic Colonoscopy 2015-05-15 00:00:00 [facility] Plan of Care Planned Activity Planned Date Details Comments Source Diagnostic Test 2022-07-06 testosterone, total, [place] [facility] Pending 00:00:00 serum [code = Urology testosterone, total, serum] Diagnostic Test 2022-07-06 PSA, serum or plasma [place] [facility] Pending 00:00:00 [code = PSA, serum Urology or plasma] Future Scheduled Test 2022-04-28 COLONOSCOPY Method [facility] 21:50:01 SCREENING [code = COLONOSCOPY SCREENING] Future Scheduled Test 2022-04-28 [facility] 21:50:01 of 2) [code = SHINGLES VACCINES (1 of 2)] Future Scheduled Test 2022-04-28 INFLUENZA VACCINE [facility] 21:50:01 [code = INFLUENZA VACCINE] Future Scheduled Test 2022-04-28 COVID-19 VACCINE [facility] 21:50:01 (#1) [code = COVID-19 VACCINE (#1)] Future Scheduled Test 2022-04-28 Hepatitis C [facility] 21:50:01 screening (procedure) [code = 919375186] Future Appointment 2023-01-02 Fani Bain, [address] [facility] 00:00:[address]; , [place] [address] Instructions [facility] Group Encounters Start End Encounter Admission Attending Care Care Encounter Source Date/Time Date/Time Type Type Clinicians Facility Department ID 2022-07-29 2022-07-29 Outpatient [facility] [id number] [place] 00:00:00 00:00:00 0317 [facility] 2022-07-29 2022-07-29 Mariluz [facility] [place] - [id number] [place] 00:00:00 00:00:00 Discovery liss Szymanski CLEAN OUT DRILLER-C: [facility] [place] [address], [facility] [address] , Ph. 2022-07-27 2022-07-27 Outpatient Shield [facility] [id number] [place] 00:00:00 00:00:00 0315 [facility] 2022-07-27 2022-07-27 Outpatient Shield [facility] [id number] [place] 00:00:00 00:00:00 0316 Medical Group 2022-07-13 2022-07-13 Outpatient Goldfarb_D [facility] U [id number] [facility] 00:00:00 00:00:00 [id number] [facility] 2022-07-06 2022-07-06 Outpatient Goldfarb_D HMU [facility] [id number] Black 00:00:00 00:00:00 26763 [facility] 2022-07-06 2022-07-06 Fani [facility] [place] [id number] [facility] 00:00:00 00:00:00 Talha Jones y : [address], [place] [address] , Ph. 2022-05-16 2022-05-16 Outpatient Goldfarb_D [facility] U [id number] Black 00:00:00 00:00:00 [id number] [facility] 2022-04-07 2022-04-07 Outpatient Goldfarb_D HMU [facility] [id number] Black 00:00:00 00:00:00 [id number] [facility] 2022-03-04 2022-03-04 Outpatient Goldfarb_D [facility] U [id number] Black 00:00:00 00:00:00 [id number] [facility] 2022-02-24 2022-02-24 Outpatient Goldfarb_D [facility] U [id number] Black 00:00:00 00:00:00 [id number] [facility] 2022-02-24 2022-02-24 Fani [facility] [place] - [id number] [facility] 00:00:00 00:00:00 Talha Jones: [address], [place] [address] , Ph. 2021-12-20 2021-12-20 Outpatient Goldfarb_D [facility] U [id number] Black 00:00:00 00:00:00 [id number] [facility] 2021-11-26 2021-11-26 Outpatient Goldfarb_D [facility] [id number] Black 07:55:00 07:55:00 41690 [facility] 2021-10-22 2021-10-22 Outpatient Goldfarb_D [facility] 7 [id number] Black 04:54:00 04:54:00 [facility] 2021-09-17 2021-09-17 Outpatient Goldfarb_D U [facility] [id number] Black 06:35:00 06:35:00 [id number] [facility] 2021-08-25 2021-08-25 Outpatient Goldfarb_D U [facility] [id number] Black 11:06:00 11:06:00 [facility] 2021-08-25 2021-08-25 [facility] [place] - [id number] Faye holdendrea 00:00:00 00:00:00 [facility] MD: [id number], [place] [address] , Ph. 2021-08-25 2021-08-25 Outpatient Odell, U [facility] [id number] 00:00:00 00:00:00 Fani Lightf [id number] 2021-06-11 2021-06-11 Telephone Rama Mathias [id number] Univers 00:00:00 00:00:00 [place] 350.1.13.10 it y [facility] [id number] Navin as [id number] [address] 2021-06-10 2021-06-10 Outpatient R ALANNA [facility] [id number] Univers 09:45:00 10:10:49 DEBBIE ity [facility] 2021-06-10 2021-06-10 Laboratory Only, Ang Db Test [facility] 1.2.8 40.114 [id number] Univers 09:45:00 10:00:00 Only Alanna [facility] [id number] ity [facility] 4.2.7.2.686 Navin as REJI?BLEA [id number] [place] uyen [address] MEDICAL OFFICE BUILDING 2021-06-10 2021-06-10 Orders Doctor BRADY 1.2.840.114 [id number] Univers 00:00:00 00:00:00 Only Unassigned, HIWOT 350.1.13.10 ity of [place] [facility] 4.2.7.2.686 Navin as [id number] [address] 2021-05-20 2021-05-20 Outpatient Goldfarb_D U [facility] [id number] Black 10:58:00 10:58:00 [facility] 2021-05-20 2021-05-20 Fani [facility] [place] - [id number] [facility] 00:00:00 00:00:00 Talha Jones Urolog y : [address] [address], [place] [address] , Ph. 2021-05-20 2021-05-20 Outpatient Odell, U [facility] [id number] 00:00:00 00:00:00 Fani Bonilla [id number] 2021-02-16 Outpatient Goldfarb_D U [facility] [id number] Black 11:31:00 11:31:00 [id number] [facility] 2021-02-16 2021-02-16 Outpatient Odell, U [facility] [id number] 00:00:00 00:00:00 Fani Bonilla [id number] 2021-02-16 2021-02-16 Fani [facility] [place] - [id number] Replaced by [facility] 00:00:00 00:00:00 Talha Jones y : [address] [facility] [address], [place] [address] , Ph. 2020-11-13 2020-11-13 Outpatient Goldfarb_D U [facility] [id number] Black 12:45:00 12:45:00 98854 [facility] 2020-11-13 2020-11-13 Outpatient Odell, [facility] U [id number] 00:00:00 00:00:00 Fani Bonilla [id number] 2020-11-13 2020-11-13 Fani [facility] [place] - [id number] Replaced by [facility] 00:00:00 00:00:00 Irene Talha Mcmanus Urolog y : [address] [facility] [address], [place] [address] , Ph. 2020-11-10 2020-11-10 Outpatient Goldfarb_D [facility] U [id number] Black 11:45:00 11:45:00 06924 [facility] 2020-10-02 2020-10-02 Outpatient Goldfarb_D [facility] U [id number] Black 09:07:00 09:07:00 32529 [facility] 2020-09-30 2020-09-30 Outpatient Goldfarb_D [facility] U [id number] Black 04:48:00 04:48:00 [id number] [facility] 2020-09-28 2020-09-28 Outpatient Goldfarb_D [facility] U [id number] Black 06:53:00 06:53:00 [id number] [facility] 2020-09-25 2020-09-26 Outpatient ODELL, [facility] [id number] Black 00:00:00 00:00:[address] F[address] 2020-09-25 2020-09-25 Outpatient Odell, [facility] U [id number] 00:00:00 00:00:00 Fani Bonilla [id number] 2020-09-25 2020-09-25 Fani [facility] [place] - [id number] Replaced by [facility] 00:00:00 00:00:00 Irene Trevizo Talha Parkinson Urolog y : [address] [facility] [address], [place] [address] , Ph. 2020-09-21 2020-09-21 Outpatient Goldfarb_D [facility] U [id number] Black 11:20:00 11:20:00 84530 [facility] 2020-09-21 2020-09-21 [facility]LL, [facility] [id number] Black 00:00:00 00:00:00 FANI [address] 2020-09-21 2020-09-21 Outpatient ODELL, [facility] [id number] Black 00:00:00 00:00:00 FANI [address] 2020-09-07 2020-09-07 Outpatient ODELL, [facility] [id number] Black 00:00:00 00:00:00 FANI [address] 2020-08-31 2020-08-31 Outpatient Goldfarb_D [facility] U [id number] Black 06:25:00 06:25:00 [id number] [facility] 2020-08-31 2020-08-31 Outpatient Odell, [facility] U [id number] 00:00:00 00:00:00 Fani Bonilla [id number] 2020-08-31 2020-08-31 Fani [facility] [place] - [id number] H brii 00:00:00 00:00:00 Irene Bain [facility] MD: [id number], [place] [address] , Ph. 2020-08-26 2020-08-26 Outpatient Goldfarb_D [facility] U [id number] Black 02:29:00 02:29:00 04231 [facility] 2020-08-12 2020-08-12 Outpatient Goldfarb_D HMU [facility]U [id number] Black 03:22:00 03:22:00 48049 [facility] 2020-08-12 2020-08-12 Outpatient Odell, [facility] U [id number] 00:00:00 00:00:00 Fani Bonilla [id number] 2020-08-12 2020-08-12 Fani [facility] [place] - [id number] Faye teresa 00:00:00 00:00:00 Talha Jones: [address] - [facility] [address], [place] [address] , Ph. 2020-08-07 2020-08-07 Outpatient Odell_Pete [facility] [id number] Black 03:56:00 03:56:00 36519 [facility] 2020-04-01 2020-04-01 Outpatient Shield [facility] [id number] [place] 02:48:00 02:48:00 1118 [facility] 2018-09-04 2018-09-04 Narayan Live [facility] [place] - [id number] M atagor 00:00:00 00:00:00 MD Noel: [address] Group [place] - [address] [place] [address] , Ph. Results Test Description Test Time Test Comments Results Result Comments Source Prostate specific Ag [Mass/volume] in Serum or Plasma by 202 05-20-18 00:00:00 Detection limit <= 0.01 ng/mL Test Item Value Reference Range Interpretation Comme nts Prostate specific Ag [Mass/volume] in Serum or Plasma by Detecti on limit <0.02 <= 0.01 ng/mL (test code = 89990-7) [facility] [Mass/volume] in Serum or [id number] 00:00:00 Test Item Value Reference Range Interpretation Comments Testosterone [Mass/volume] in Serum 617 NG/dL 250-827 or Plasma (test code = 2986-8) Black Talha HjadkkjVNOE-SoW-7 (COVID-19) RNA [Presence] in Respiratory specimen by CHERYL with probe [id number] 18:18:42 Test Item Value Reference Range Interpretation Comments SARS-CoV-2 (COVID-19) RNA Not detected Not-Detected [Presence] in Respiratory specimen by CHERYL with probe detection (test code = 91246-3) Whether patient is employed in a healthcare setting (test code = 64424-9) Whether the patient has symptoms related to condition of interest (test code = 29449-7) Patient was hospitalized because of this condition (test code = 78103-1) Whether the patient was admitted to intensive care unit (ICU) for condition of interest (test code = 87366-1) Whether patient resides in a congregate care setting (test code = 36444-7) SANTHOSH L[facility] Pathology biopsy [id number] 00:00:00 [facility]
--- NOTE | 2022-07-31 03:11 | EDPHYS ---
Physician Documentation [facility] Name: Hans Thurston Jr Age: 57 yrs Sex: Male : 1965 Arrival Date: 07/31/2022 Time: 02:48 Bed 11 Private MD: ED Physician Camden Ying Historical: - Allergies: 07/31 03:03 No Known Allergies; kl - Home Meds: 03:03 None [Active]; kl - PMHx: 03:03 Prostate Cancer; kl - PSHx: 03:03 prostate removal; right knee menicus; kl - Immunization history:: Adult Immunizations up to date. - Social history:: Smoking status: Patient denies any tobacco usage or history of. Vital Signs: 03:00 BP 136 / 76; Pulse 81; Resp 18; Temp 97.6; Pulse Ox 100% on R/A; Weight 102.06 kg; kl Height 5 ft. 6 in. ; Pain 7/10; 03:00 Body Mass Index 36.32 (102.06 kg, 167.64 cm) kl 03:00 Pain Scale: Adult kl MDM: 03:08 Patient medically screened. ms3 Administered Medications: No medications were administered Disposition Summary: 07/31/22 03:10 Discharge Ordered Location: Home ms3 Condition: Stable ms3 Diagnosis - Allergic rhinitis, unspecified ms3 Followup: ms3 - With: Tulio Rondon DO - When: 2 - 3 days - Reason: Recheck today's complaints Forms: - Medication Reconciliation Form ms3 - Thank You Letter ms3 - Antibiotic Education ms3 - Prescription Opioid Use ms3 Signatures: Yelitza Lerma, RN RN Camden Avila DO DO ms3
--- NOTE | 2022-07-31 03:11 | ER ---
Nurse's Notes [facility] Name: Hans Thurston Jr Age: 57 yrs Sex: Male : 1965 Arrival Date: 07/31/2022 Time: 02:48 Bed 11 Private MD: Diagnosis: Allergic rhinitis, unspecified Presentation: 07/31 03:00 Chief complaint: Patient states: sore scratchy throat pain when swallowing x 1 week. Coronavirus screen: Vaccine status: Patient reports receiving the 2nd dose of the covid vaccine. Ebola Screen: Patient negative for fever greater than or equal to 101.5 degrees Fahrenheit, and additional compatible Ebola Virus Disease symptoms. Initial Sepsis Screen: Does the patient meet any 2 criteria? No. Patient's initial sepsis screen is negative. Does the patient have a suspected source of infection?. Risk Assessment: Do you want to hurt yourself or someone else? Patient reports no desire to harm self or others. 03:00 Method Of Arrival: Ambulatory kl 03:00 Acuity: PAL 4 kl Triage Assessment: 03:02 General: Appears in no apparent distress. well groomed, well developed, Behavior is kl calm, cooperative. Pain: Complains of pain in throat. EENT: Reports pain when swallowing. Historical: - Allergies: 03:03 No Known Allergies; kl - Home Meds: 03:03 None [Active]; kl - PMHx: 03:03 Prostate Cancer; kl - PSHx: 03:03 prostate removal; right knee menicus; kl - Immunization history:: Adult Immunizations up to date. - Social history:: Smoking status: Patient denies any tobacco usage or history of. Screenin:04 [facility] ED Fall Risk Assessment (Adult) History of falling in the last 3 months, kl including since admission No falls in past 3 months (0 pts) Confusion or Disorientation No (0 pts) Intoxicated or Sedated No (0 pts) Impaired Gait No (0 pts) Mobility Assist Device Used No (0 pt) Altered Elimination No (0 pt) Score/Fall Risk Level 0 - 2 = Low Risk Oriented to surroundings, Maintained a safe environment. Abuse screen: Denies threats or abuse. Nutritional screening: No deficits noted. Tuberculosis screening: No symptoms or risk factors identified. Assessment: 03:03 Respiratory: No deficits noted. Airway is patent Respiratory effort is even, unlabored, kl Breath sounds are clear bilaterally. EENT: Throat is reddened. Vital Signs: 03:00 BP 136 / 76; Pulse 81; Resp 18; Temp 97.6; Pulse Ox 100% on R/A; Weight 102.06 kg; kl Height 5 ft. 6 in. ; Pain 7/10; 03:00 Body Mass Index 36.32 (102.06 kg, 167.64 cm) kl 03:00 Pain Scale: Adult ED Course: 02:48 Patient arrived in ED. jj6 03:02 Camden Ying DO is Attending Physician. ms3 03:02 Triage completed. kl 03:04 Patient has correct armband on for positive identification. kl 03:09 Tulio Rondon DO is Referral Physician. ms3 Administered Medications: No medications were administered Medication: 03:04 VIS not applicable for this client. Outcome: 03:10 Discharge ordered by . ms3 Signatures: Yelitza Lerma RN RN Camden Ying DO DO ms3 Chata Blackmon jj6
[2022-07-31 03:22] VITALS: TEMP 97.6
[2022-07-31 03:23] VITALS: BP 140/85; O2SAT 97
== END 2022-07-31 03:17 | disposition home or self-care (01) ==
LOC: ER 02:45
DX: J30.9 Allergic rhinitis, unspecified (principal); J02.9 Acute pharyngitis, unspecified; Z85.46 Personal history of malignant neoplasm of prostate
CPT/HCPCS: 99281

== ENCOUNTER 2024-04-12 11:12 | Emergency (ER) | payer BC ==
--- NOTE | 2024-04-12 12:31 | RAD REPORT ---
EXAMINATION: CT HEAD WITHOUT CONTRAST CT CERVICAL SPINE WITHOUT CONTRAST CLINICAL INDICATION: Head and neck injury status post fall. Head and neck pain TECHNIQUE: Axial CT images from the skull base to the vertex without intravenous contrast. Axial CT i mages through the cervical spine were obtained without intravenous contrast. Sagittal and coronal reformatted images were created from the data set. Coronal and sagittal reformatted images were creat ed from the data set. One or more of the following dose reduction techniques were used: Automated exposure control, adjustment of the mA and/or kV according to patient size, and/or iterative reconstr uction. Unless otherwise specified, incidental findings do not require dedicated imaging follow-up. [id number]. Comparison: 2020 and 2014 FINDINGS: An intracranial bleed is not seen. Ventricles are normal in caliber. No significant hypodensity within the brain No extra-axial fluid collection. No fluid within the sinuses/mastoids No fracture or dislocation is seen involving the cervical spine. Spondylosis cervical spine IMPRESSION: No acute intracranial abnormality noted A cervical fracture is not seen. If the patient continues to have symptoms to suggest acute SULPHATE TESTER/spinal pathology then MRI would be rec ommended
--- NOTE | 2024-04-12 13:26 | ER ---
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 I went to urgent care that night and got stitches. Within the last two weeks the right side of my head has started to feel tight and I have been getting headaches. Coronavirus screen: Client denies travel out of the [place] in the last 14 days. Ebola Screen: Patient negative for fever greater than or equal to 101.5 degrees Fahrenheit, and additional compatible Ebola Virus Disease symptoms Patient denies exposure to infectious person. Patient denies travel to an Ebola-affected area in the 21 days before illness onset. No symptoms or risks identified at this time. Initial Sepsis Screen: Does the patient meet any 2 criteria? No. Patient's initial sepsis screen is negative. Does the patient have a suspected source of infection? No. Patient's initial sepsis screen is negative. Risk Assessment: Do you want to hurt yourself or someone else? Patient reports no desire to harm self or others. 11:36 Method Of Arrival: Ambulatory tm6 11:36 Acuity: PAL 4 tm6 Triage Assessment: 11:38 General: Appears in no apparent distress. Behavior is calm, cooperative. Pain: tm6 Complains of pain in right sabianist Pain does not radiate. Pain currently is 2 out of 10 on a pain scale. Quality of pain is described as tightness. EENT: No signs and/or symptoms were reported regarding the EENT system. Neuro: Level of Consciousness is awake, alert, obeys commands, Oriented to person, place, time, situation, Reports headache x2 weeks. Cardiovascular: Patient's skin is warm and dry. Respiratory: Airway is patent Respiratory effort is even, unlabored, Respiratory pattern is regular, symmetrical. GI: No signs and/or symptoms were reported involving the gastrointestinal system. Abdomen is flat, non-distended. : No signs and/or symptoms were reported regarding the genitourinary system. Derm: No signs and/or symptoms reported regarding the dermatologic system. Musculoskeletal: No signs and/or symptoms reported regarding the musculoskeletal system. Historical: - Allergies: 11:38 No Known Allergies; tm6 - PMHx: 11:38 Prostate Cancer; tm6 - PSHx: 11:38 prostate removal; right knee menicus; tm6 - Immunization history:: Client reports receiving the 2nd dose of the Covid vaccine. - Infectious Disease History:: Denies. - Social history:: Smoking status: Patient denies any tobacco usage or history of. Patient/guardian denies using alcohol. Screenin:00 [facility] ED Fall Risk Assessment (Adult) History of falling in the last 3 months, jl7 including since admission No falls in past 3 months (0 pts) Confusion or Disorientation No (0 pts) Intoxicated or Sedated No (0 pts) Impaired Gait No (0 pts) Mobility Assist Device Used No (0 pt) Altered Elimination No (0 pt) Score/Fall Risk Level 0 - 2 = Low Risk Oriented to surroundings, Maintained a safe environment. Abuse screen: Denies threats or abuse. Denies injuries from another. Nutritional screening: No deficits noted. Tuberculosis screening: No symptoms or risk factors identified. Assessment: 12:00 General: Appears in no apparent distress. uncomfortable, Behavior is calm, cooperative, jl7 appropriate for age. Pain: Complains of pain in right sabianist Pain currently is 2 out of 10 on a pain scale. Neuro: Level of Consciousness is awake, alert, obeys commands, Oriented to person, place, time, situation. Cardiovascular: Patient's skin is warm and dry. Respiratory: Airway is patent Respiratory effort is even, unlabored, Respiratory pattern is regular, symmetrical. Derm: Skin is pink, warm \T\ dry. 13:00 Reassessment: Patient appears in no apparent distress at this time. No changes from jl7 previously documented assessment. Patient and/or family updated on plan of care and expected duration. Pain level reassessed. Patient is alert, oriented x 3, equal unlabored respirations, skin warm/dry/pink. Vital Signs: 11:36 BP 141 / 90; Pulse 80; Resp 18; Temp 97.9(TE); Pulse Ox 98% on R/A; MAP 105 mmHg; tm6 Weight 95.25 kg; Height 5 ft. 6 in. ; Pain 2/10; 13:38 BP 103 / 86; Pulse 63; Resp 15; Pulse Ox 100% ; jl7 11:36 Body Mass Index 33.89 (95.25 kg, 167.64 cm) tm6 11:36 Pain Scale: Adult tm6 Abhijit Coma Score: 13:24 Eye Response: spontaneous(4). Motor Response: obeys commands(6). Verbal Response: regino oriented(5). Total: 15. NIH Stroke Scale Scores: 13:23 NIHSS Score: 0 [facility] ED Course: 11:15 Patient arrived in ED. im 11:28 Wayne Larson MD is Attending Physician. regino 11:37 Devin Roberts, BRYCE is Primary Nurse. jl7 11:38 Triage completed. tm6 11:38 Arm band placed on right wrist. tm6 11:52 CT Head C Spine In Process Unspecified. EDMS 12:00 Patient has correct armband on for positive identification. Provided Education on: use jl7 of call john. 13:25 Braden Dyer MD is Referral Physician. regino 13:39 No provider procedures requiring assistance completed. Patient did not have IV access jl7 during this emergency room visit. Administered Medications: 13:38 Not Given (Patient Refused): [id number] mg PO once jl7 Medication: 12:00 VIS not applicable for this client. jl7 Outcome: 13:25 Discharge ordered by . regino 13:39 Discharged to home ambulatory, jl7 13:39 Condition: stable 13:39 Discharge instructions given to patient, Instructed on discharge instructions, follow up and referral plans. Demonstrated understanding of instructions, follow-up care, 13:39 Patient left the ED. jl7 NIH Stroke Scale - NIH Stroke Score Date: 04/12/2024 Time: 13:23 Total Score = 0 10. Dysarthria (speech clarity - read or repeat words) - 0(Normal) 11. Extinction and Inattention (visual/tactile/auditory/spatial/personal) - 0(No abnormality) 1a. Level of Consciousness (LOC) - 0(Alert) 1b. Level of Consciousness (LOC) (Month \T\ Age) - 0(Both) 1c. LOC Commands (Open \T\ Closes Eyes/Electrical Installer) - 0(Both) 2. Best Gaze (Lateral Gaze Paresis) - 0(Normal) 3. Visual Field Loss - 0(No visual loss) 4. Facial Palsy - 0(Normal) 5a. Left Arm: Motor (10-second hold) - 0(No drift) 5b. Right Arm: Motor (10-second hold) - 0(No drift) 6a. Left Leg: Motor (5-second hold - always test supine) - 0(No drift) 6b. Right Leg: Motor (5-second hold - always test supine) - 0(No drift) 7. Limb Ataxia (finger/nose \T\ heel/lynn - test with eyes open) - 0(Absent) 8. Sensory Loss (pinprick arms/legs/face) - 0(Normal) 9. Best Language: Aphasia (description/naming/reading) - 0(No aphasia) Initials: regino Signatures: Dispatcher [employer] Wayne Baird MD MD cha Leal, Jahala, RN RN jl7 Karla Loaj Tawney RN RN tm6
--- NOTE | 2024-04-12 13:26 | EDPHYS ---
Physician Documentation [facility] Name: Hans Crawford Jr Age: 59 yrs Sex: Male : 1965 Arrival Date: 04/12/2024 Time: 11:12 Bed 14 Private MD: ED Physician Wayne Larson HPI: 04/12 13:22 This 59 yrs old Black Male presents to ER via Ambulatory with complaints of Head regino Injury-Adult - 1 month ago, Headache - Pressure. Historical: - Allergies: 11:38 No Known Allergies; tm6 - PMHx: 11:38 Prostate Cancer; tm6 - PSHx: 11:38 prostate removal; right knee menicus; tm6 - Immunization history:: Client reports receiving the 2nd dose of the Covid vaccine. - Infectious Disease History:: Denies. - Social history:: Smoking status: Patient denies any tobacco usage or history of. Patient/guardian denies using alcohol. ROS: 13:23 Constitutional: Negative for fever, chills, and weight loss, Eyes: Negative for injury, regino pain, redness, and discharge, ENT: Negative for injury, pain, and discharge, Neck: Negative for injury, pain, and swelling, Cardiovascular: Negative for chest pain, palpitations, and edema, Respiratory: Negative for shortness of breath, cough, wheezing, and pleuritic chest pain, Abdomen/GI: Negative for abdominal pain, nausea, vomiting, diarrhea, and constipation, Back: Negative for injury and pain, : Negative for injury, bleeding, discharge, and swelling, MS/Extremity: Negative for injury and deformity, Skin: Negative for injury, rash, and discoloration, Psych: Negative for depression, anxiety, suicide ideation, homicidal ideation, and hallucinations, Allergy/Immunology: Negative for hives, rash, and allergies, Endocrine: Negative for neck swelling, polydipsia, polyuria, polyphagia, and marked weight changes, Hematologic/Lymphatic: Negative for swollen nodes, abnormal bleeding, and unusual bruising, 13:23 Neuro: Positive for headache, Exam: 13:23 Constitutional: This is a well developed, well nourished patient who is awake, alert, regino and in no acute distress. Head/Face: Normocephalic, atraumatic. Eyes: Pupils equal round and reactive to light, extra-ocular motions intact. Lids and lashes normal. Conjunctiva and sclera are non-icteric and not injected. Cornea within normal limits. Periorbital areas with no swelling, redness, or edema. ENT: Nares patent. No nasal discharge, no septal abnormalities noted. Tympanic membranes are normal and external auditory canals are clear. Oropharynx with no redness, swelling, or masses, exudates, or evidence of obstruction, uvula midline. Mucous membranes moist. Neck: Trachea midline, no thyromegaly or masses palpated, and no cervical lymphadenopathy. Supple, full range of motion without nuchal rigidity, or vertebral point tenderness. No Meningismus. Chest/axilla: Normal chest wall appearance and motion. Nontender with no deformity. No lesions are appreciated. Cardiovascular: Regular rate and rhythm with a normal S1 and S2. No gallops, murmurs, or rubs. Normal PMI, no JVD. No pulse deficits. Respiratory: Lungs have equal breath sounds bilaterally, clear to auscultation and percussion. No rales, rhonchi or wheezes noted. No increased work of breathing, no retractions or nasal flaring. Abdomen/GI: Soft, non-tender, with normal bowel sounds. No distension or tympany. No guarding or rebound. No evidence of tenderness throughout. Back: No spinal tenderness. No costovertebral tenderness. Full range of motion. Male : Normal genitalia with no discharge or lesions. Skin: Warm, dry with normal turgor. Normal color with no rashes, no lesions, and no evidence of cellulitis. MS/ Extremity: Pulses equal, no cyanosis. Neurovascular intact. Full, normal range of motion. Neuro: Awake and alert, GCS 15, oriented to person, place, time, and situation. Cranial nerves II-XII grossly intact. Motor strength 5/5 in all extremities. Sensory grossly intact. Cerebellar exam normal. Normal gait. Psych: Awake, alert, with orientation to person, place and time. Behavior, mood, and affect are within normal limits. Vital Signs: 11:36 BP 141 / 90; Pulse 80; Resp 18; Temp 97.9(TE); Pulse Ox 98% on R/A; MAP 105 mmHg; tm6 Weight 95.25 kg; Height 5 ft. 6 in. ; Pain 2/10; 13:38 BP 103 / 86; Pulse 63; Resp 15; Pulse Ox 100% ; jl7 11:36 Body Mass Index 33.89 (95.25 kg, 167.64 cm) tm6 11:36 Pain Scale: Adult tm6 NIH Stroke Scale Scores: 13:23 NIHSS Score: 0 regino Wendover Coma Score: 13:24 Eye Response: spontaneous(4). Motor Response: obeys commands(6). Verbal Response: regino oriented(5). Total: 15. MDM: 11:28 Medical Screening Exam initiated regino 13:24 Differential diagnosis: Contusion of Hematoma on Intracranial bleed- Concussion without regino LOC. cerebral contusion. Data reviewed: vital signs, nurses notes, radiologic studies, CT scan. Consideration of Admission/Observation Escalation of care including admission/observation considered. I considered the following discharge prescriptions or medication management in the emergency department Medications were administered in the Emergency Department. See MAR. Independent interpretation of the following test(s) in the Emergency Department CT Scan: My interpretation is ct head and c spine. Test considered but Not performed: Labs: no labs. Care significantly affected by the following chronic conditions: Cancer. 04/12 11:29 Order name: CT Head C Spine regino Administered Medications: 13:38 Not Given (Patient Refused): [id number] mg PO once jl7 Disposition Summary: 04/12/24 13:25 Discharge Ordered Notes: Location: Home regino Problem: new regino Symptoms: have improved regino Condition: Stable regino Diagnosis - Headache - hx of left sided head trauma regino Followup: regino - With: Private Physician - When: 2 - 3 days - Reason: Recheck today's complaints, Continuance of care, Re-evaluation by your physician Followup: regino - With: Braden Dyer MD - When: 2 - 3 days - Reason: Recheck today's complaints, Re-evaluation by your physician Discharge Instructions: - Discharge Summary Sheet regino - General Headache Without Cause regino - General Headache Without Cause, [id number] regino Forms: - Medication Reconciliation Form regino - Antibiotic Education regino - Prescription Opioid Use regino - Patient Portal Instructions regino - Leadership Thank You Letter regino Prescriptions: - Ibuprofen 600 mg Oral Tablet - take 1 tablet ORAL route every 6 hours As needed take with food; 30 tablet; regino Refills: 0, Product Selection Permitted NIH Stroke Scale - NIH Stroke Score Date: 04/12/2024 Time: 13:23 Total Score = 0 10. Dysarthria (speech clarity - read or repeat words) - 0(Normal) 11. Extinction and Inattention (visual/tactile/auditory/spatial/personal) - 0(No abnormality) 1a. Level of Consciousness (LOC) - 0(Alert) 1b. Level of Consciousness (LOC) (Month \T\ Age) - 0(Both) 1c. LOC Commands (Open \T\ Closes Eyes/Seat Scooper Machine) - 0(Both) 2. Best Gaze (Lateral Gaze Paresis) - 0(Normal) 3. Visual Field Loss - 0(No visual loss) 4. Facial Palsy - 0(Normal) 5a. Left Arm: Motor (10-second hold) - 0(No drift) 5b. Right Arm: Motor (10-second hold) - 0(No drift) 6a. Left Leg: Motor (5-second hold - always test supine) - 0(No drift) 6b. Right Leg: Motor (5-second hold - always test supine) - 0(No drift) 7. Limb Ataxia (finger/nose \T\ heel/lynn - test with eyes open) - 0(Absent) 8. Sensory Loss (pinprick arms/legs/face) - 0(Normal) 9. Best Language: Aphasia (description/naming/reading) - 0(No aphasia) Initials: regino Signatures: Dispatcher [employer] EDWayne Marinelli MD MD cha Masterson, Tawney RN RN tm6 Devin Roberts RN jl7 Corrections: (The following items were deleted from the chart) 11:29 11:29 Head C Spine MPR Wo [id number].BRZ ordered. EDMS EDMS
[2024-04-12] MEDS ORDERED: IBUPROFEN 200 MG TAB PO ONE (13:29)
[2024-04-12 14:27] VITALS: TEMP 97.9
[2024-04-12 14:28] VITALS: BP 103/86; O2SAT 100
== END 2024-04-12 13:39 | disposition home or self-care (01) ==
LOC: ER 11:12
DX: R51.9 Headache, unspecified (principal); Z87.828 Personal history of other (healed) physical injury and trauma
CPT/HCPCS: 70450; 72125; 99282